=== PATIENT | female | born 1950 | race Caucasian/White ===

== ENCOUNTER 2017-02-25 11:00 | Inpatient (IN) | payer BC ==
[2017-02-25] MEDS ORDERED: Magnesium Sulfate 2 GM/100 ML BAG ONE (11:39)
[2017-02-25] MEDS ORDERED: Acetaminophen 325 MG TAB PO PRN (11:40)
[2017-02-25] MEDS ORDERED: Senokot 8.6 MG TAB PO PRN (11:40)
[2017-02-25] MEDS ORDERED: Guaifenesin DM 100-10/5 ML UDCUP PO PRN (11:40)
[2017-02-25 11:41] LABS: Actual Bicarbonate (HCO3a) 28.6 mEq/L (22-26); Base Excess (BEa) 0.8 mEq/L (0 (+/-) 2.5); Hematocrit-ABG 46.8 % (36.0-47.0); O2 Tension (PaO2) 98.4 mmHg (80.0-100.0); pH, Arterial 7.29 (7.35-7.45)
[2017-02-25 11:43] LABS: Analyzer IN Cardio ER; Puncture Site L.B.
[2017-02-25 11:59] LABS: CKMB 13.2 ng/mL (0-6.6); Troponin I 0.486 ng/mL (< 0.028)
[2017-02-25] MEDS ORDERED: Enoxaparin Sodium 60 MG/0.6 ML SYRINGE ONE (12:35)
[2017-02-25] MEDS: Enoxaparin Sodium 80 MG/0.8 ML SYRINGE SC SCH ×2 (13:31→23:37)
[2017-02-25] MEDS: Sodium Chloride 0.9% 1,000 ML IV SCH (13:37)
[2017-02-25] MEDS: Azithromycin 500 MG in Sodium Chloride 0.9% 250 ML 250 ML IVPB SCH (13:39)
[2017-02-25 14:48] VITALS: BMI 24.7
--- NOTE | 2017-02-25 14:53 | HP ---
REASON FOR ADMISSION: Acute respiratory failure with hypoxia and hypercarbia, acute COPD exacerbation, demand ischemia of myocardium. HISTORY OF PRESENTING ILLNESS: The patient gives history of having worsening shortness of breath and coughing spells from yesterday. This got worse early this morning. She finally went to [facility] where she was found to have saturations of 80% on arrival. She was placed on nasal cannula. She has had a preliminary workup done there, which showed a troponin I of 0.5, CK-MB of 12 and sodium of 126. On arrival here, patient has had a CT angio chest done, which showed right upper and right middle lobe pneumonia. There was no PE on the CT angio. Currently, she is barely able to speak one or two words before she has to take a breath and is in respiratory distress at present. The patient says she smokes 2-3 cigarettes a day and has been smoking heavy before. She has done that for nearly 50 years or so now. Patient also sees Dr. Cano for Pulmonology in the outpatient setting. No chest pain as such. She has no complaints of palpitation. She has felt feverish at home. PAST MEDICAL AND SURGICAL HISTORY: COPD, tobacco abuse, peripheral vascular disease with fem-pop repair as well, tonsillectomy, , trigger thumb repair, back surgery, hypertension and dyslipidemia. CURRENT MEDICATIONS: Patient takes losartan, Zocor, and inhaler. She cannot remember further specifics of these three medications. ALLERGIES: LEVOFLOXACIN. PERSONAL HISTORY: Smokes 2-3 cigarettes now daily prior to, but has been a heavy smoker before and has done so for nearly 50 years, does not abuse, heavy alcohol or drugs. Lives with her . CODE STATUS: FULL. FAMILY HISTORY: Mom at the age of 63 years from pancreatic cancer. Father at the age of 87 years. She has had history of CHF. REVIEW OF SYSTEMS: The following complete review of systems was negative, unless otherwise mentioned in the HPI or below: CONSTITUTIONAL: Weight loss or gain, ability to conduct usual activities. SKIN: Rash, itching. EYES: Double vision, pain. ENT/MOUTH: Nose bleeding, neck stiffness, pain, tenderness. CARDIOVASCULAR: Palpitations, dyspnea on exertion, orthopnea. RESPIRATORY: Shortness of breath, wheezing, cough, hemoptysis, fever or night sweats. GASTROINTESTINAL: Poor appetite, abdominal pain, heartburn, nausea, vomiting, constipation, or diarrhea. GENITOURINARY: Urgency, frequency, dysuria, nocturia. MUSCULOSKELETAL: Pain, swelling. NEUROLOGIC/PSYCHIATRIC: Anxiety, depression. ALLERGY/IMMUNOLOGIC: Skin rash, bleeding tendency. PHYSICAL EXAMINATION: GENERAL: The patient is a 66-year-old female, who is currently in respiratory distress. VITAL SIGNS: Blood pressure 136/74, pulse 112 per minute, respiratory rate 24 per minute, temperature 98.8 degrees Fahrenheit, saturating 93% on 3 liters nasal cannula. NECK: Supple, no elevated JVD. HEENT: Eyes, extraocular muscles intact. Pupils reacting to light. Oral cavity and mucous membranes are dry. There is mild congestion in the posterior pharynx. CARDIOVASCULAR: S1, S2 heard. Tachycardic, no murmur. RESPIRATORY: Air entry 1+ bilateral. Wheezes plus bilaterally. ABDOMEN: Soft, bowel sounds heard. No tenderness, rigidity or guarding. EXTREMITIES: No peripheral edema or calf tenderness. VASCULAR SYSTEM: Peripheral pulses 1+ bilateral. No ischemic ulcerations or gangrene. CENTRAL NERVOUS SYSTEM: No gross focal deficits seen. Patient is alert, awake , oriented well. PSYCHIATRIC: The patient's mood is a bit anxious, otherwise no hallucinations or delusions. LABORATORY AND X-RAY FINDINGS: White count 10, H&H 14 and 41, platelet count is 286 with 81% neutrophils. ABG done just now shows a pH of 7.29, PCO2 61, pO2 of 98, sodium 126, potassium 3.8, serum bicarbonate 28, BUN 9, creatinine 0.6, glucose 121, AST 62, ALT 30. BNP is 198, troponin I 0.52. CK-MB 12.3. CT angio chest done shows no evidence of PE. There is a right upper lobe and right middle lobe pneumonia. EKG done shows sinus tachycardia at 109 beats per minute. Repeat EKG is pending at present. CLINICAL IMPRESSION AND PLAN: The patient will be admitted to [facility] for acute respiratory failure with hypoxia and hypercarbia, acute on chronic obstructive pulmonary disease exacerbation and likely demand ischemia. We will place her on BiPAP and see if she tolerates. She will be on Zithromax and ceftriaxone along with gentle hydration. She will be on Solu-Medrol 40 mg IV q.6 hourly along with nebulizers every 6 hours. She will be on aspirin and small dose of Coreg. We will continue her Zocor as before. She will be on nitro paste half- inch every 8 hourly and Lovenox 60 mg subQ every 12 hourly. Her Lovenox can be discontinued if the troponins are trending downwards. We will see the trend with 2 more sets of troponin. We will consult her pulverizer operator, Dr. Cano, who is telephone sales agent today and Dr. Farmer for Cardiology as well. Patient has peripheral vascular disease and likely might have CAD and it is unclear if she has had a prior stress test. MAIRA
[2017-02-25] MEDS ORDERED: cefTRIAXone\\ROCEPHIN 1 GM in Sodium Chloride 0.9% 100 ML IVPB SCH (15:00)
[2017-02-25] MEDS: Nitroglycerin 2% Ointment 1 INCH/1 GM Packet TOP SCH ×2 (15:21→21:32)
[2017-02-25 15:24] LABS: Critical Call Chem Troponin I RESULT DECREASING
[2017-02-25 18:04] LABS: Critical Call Chem Troponin I RESULT DECREASING; Troponin I 0.316 ng/mL (< 0.028)
[2017-02-25] MEDS: cefTRIAXone\\ROCEPHIN 1 GM, Syringe 0.4 ML in Sterile Water 9.6 ML SLOW IVP SCH (18:04)
--- NOTE | 2017-02-25 19:10 | CON ---
DATE OF CONSULTATION: 02/25/2017 REASON FOR CONSULTATION: Acute respiratory failure. HISTORY OF PRESENT ILLNESS: This is a 66-year-old female who became ill about 5 days ago, multiple f amily members had the flu. The patient has developed shortness of breath. Symptoms are generalized and characterized by tightness with high severity. Symptoms have been getting worse. She has had pr oductive green and yellow sputum. She is continuing to smoke about 2 packs per day. PAST MEDICAL HISTORY: 1. Chronic obstructive pulmonary disease. 2. Peripheral vascular disease. 3. Tobacco abuse. PAST SURGICAL HISTORY: Laminectomy and lower extremity angiography. PSYCHIATRIC HISTORY: Negative. SOCIAL HISTORY: A 2-pack per day smoker, occasionally drinks alcohol. Does not use illicit drugs. ALLERGIES: LEVOFLOXACIN causes heart racing. MEDICATIONS PRIOR TO ADMISSION: Simvastatin 40 mg daily, metoprolol 25 mg b.i.d., losartan/hydrochlo rothiazide 27450.5 one daily, Flonase nasal spray daily, cilostazol 100 mg b.i.d., Ceftin 500 mg b.i. d., albuterol, ProAir metered dose inhaler as needed, aspirin 81 mg daily. Current inpatient medicat ions were reviewed and are listed in the MAR and chart includes antibiotics, methylprednisolone and b reathing treatments. REVIEW OF SYSTEMS: A 12- point review of systems otherwise negative. FAMILY MEDICAL HISTORY: Unremarkable. PHYSICAL EXAMINATION: VITAL SIGNS: Temperature 99.0, pulse 103, respirations 20, O2 saturation 97% on 2 liters, blood pres sure 102/72. GENERAL: She is an elderly female who appears much older than her stated age of 66. HEENT: Unremarkable. NECK: Without adenopathy, JVD, or bruits. LUNGS: Tight end expiratory wheezing bilaterally with no accessory muscle use. CARDIAC: S1, S2, slightly tachycardic without murmur. ABDOMEN: Soft, nontender, nondistended. EXTREMITIES: No clubbing, cyanosis or edema. SKIN: Shows no obvious lesions. NEUROLOGIC: Fully intact throughout. LABORATORY DATA: ABG, pH 7.29, pCO2 of 61, pO2 of 98 and that was on 3 L nasal cannula. White blood cell count 10.4, hematocrit 41.6, platelet count 286. Sodium 126, potassium 3.8, chloride 85, CO2 o f 28, BUN 17, creatinine 0.6, glucose 121, cholesterol 220. ASSESSMENT: 1. Acute respiratory failure related to chronic obstructive pulmonary disease exacerbation. 2. Underlying chronic obstructive pulmonary disease. 3. Tobacco abuse. 4. Hyponatremia. 5. Normal chest x-ray, which I have reviewed personally. 6. CT pulmonary angiogram that I reviewed personally, which shows no evidence of pulmonary embolism, but this shows infiltrate in the right middle lobe and right lower lobe. 7. Pneumonia. RECOMMENDATIONS: 1. Continue antibiotics. 2. Increase frequency nebulization treatments. 3. Would reduce anticoagulation down to prophylactic doses unless there is another reason for antico agulation that I am not aware of.
[2017-02-25] MEDS: Simvastatin 40 MG TAB PO SCH (21:32)
[2017-02-25] MEDS: Carvedilol 3.125 MG TAB PO SCH (21:32)
[2017-02-25] MEDS: Famotidine 20 MG TAB PO SCH (21:32)
[2017-02-26] MEDS: Sodium Chloride 0.9% 1,000 ML IV SCH ×3 (05:08→20:58)
[2017-02-26] MEDS: Nitroglycerin 2% Ointment 1 INCH/1 GM Packet TOP SCH ×3 (05:08→20:55)
[2017-02-26 05:29] LABS: #Lymphocytes 0.6 thou/uL (1.20-3.40); #Monocytes 0.4 thou/uL (0.11-0.59); %Basophils 0.3 % (0.0-1.0); %Eosinophils 0.1 % (0.0-10.0); %Lymphocytes 10.1 % (21.0-51.0); %Monocytes 6.9 % (0.0-10.0); %Neutrophils 82.5 % (42.0-75.0); Hemoglobin 12.3 g/dL (12.0-16.0); Mean Corpuscular HGB CONC 31.7 g/dL (32.0-36.0); Mean Corpuscular Hemoglobin 31.4 pg (27.0-31.0); Mean Corpuscular Volume 99.1 fl (81.0-99.0); Platelet Count 254 thou/uL (130-400); RBC Distribution Width 13.6 % (11.5-14.5); Red Blood Cell (RBC) Count 3.92 mill/uL (4.20-5.40); White Blood Cell (WBC) Count 6.1 thou/uL (4.8-10.8)
[2017-02-26 06:03] LABS: Anion Gap 14 mmol/L (10-20); BUN (Urea Nitrogen) 7 mg/dL (9.8-20.1); Calc. Creatinine Clearance 91 mL/min (70-130); Calcium 8.3 mg/dL (7.8-10.44); Carbon Dioxide 29 mmol/L (23-31); Cardiac Risk 2.5 (Less than 4.5); Chloride 93 mmol/L (98-107); Cholesterol 127 mg/dl (< 200 Desired); Estimated GFR-MDRD Greater than 90; Glucose 127 mg/dL (80-115); HDL Cholesterol 50 mg/dL (>60 Neg Risk); LDL Cholesterol, Calculated 64 mg/dL; Potassium 3.8 mmol/L (3.5-5.1); Sodium 132 mmol/L (136-145); Triglycerides 67 mg/dL (Less than 150)
[2017-02-26] MEDS: Aspirin 325 MG TAB PO SCH (08:08)
[2017-02-26] MEDS: Famotidine 20 MG TAB PO SCH ×2 (08:08→20:55)
[2017-02-26] MEDS: Carvedilol 3.125 MG TAB PO SCH ×2 (08:09→20:55)
--- NOTE | 2017-02-26 09:31 | PDOC.PULPN ---
Progress Note: Subj/Obj - Subjective Date: 02/26/17 Time: 09:29 Subjective: Not much better. Refusing BiPAP. Wants to get up and go to bathroom - ROS Respiratory: congestion, cough, chest tightness - Objective Allergies/Adverse Reactions: Allergies Allergy/AdvReac Type Severity Reaction Status Date / Time levofloxacin [From Levaquin] Allergy Severe HEART Verified 02/25/17 14:50 RACING/SOB Medications: Current Medications Acetaminophen (Tylenol) 650 mg PO Q4H PRN PRN Reason: Headache/Fever or Pain Albuterol/Ipratropium (Duoneb) 3 ml NEB [id number] [facility] Last Admin: 02/26/17 06:39 Dose: 3 ml Aspirin (Aspirin) 325 mg PO DAILY [facility] Last Admin: 02/26/17 08:08 Dose: 325 mg Carvedilol (Coreg) 3.125 mg PO BID [facility] Last Admin: 02/26/17 08:09 Dose: 3.125 mg Enoxaparin Sodium (Lovenox) 40 mg SC 0900 [facility] Famotidine (Pepcid) 20 mg PO BID [facility] Last Admin: 02/26/17 08:08 Dose: 20 mg Guaifenesin/Dextromethorphan (Robitussin Dm) 15 ml PO Q4H PRN PRN Reason: Cough Azithromycin 500 mg/ Sodium (Chloride) 250 mls @ 250 mls/hr IVPB 1300 [facility] Last Admin: 02/25/17 13:39 Dose: 250 mls Sodium Chloride (Normal Saline 0.9%) 1,000 mls @ 70 mls/hr IV .[id number] [facility] Last Admin: 02/26/17 05:08 Dose: 1,000 mls Ceftriaxone Sodium 1 gm/ (Syringe 0.4 ml/ Sterile Water) 10 mls @ 120 mls/hr SLOW IVP 1830 [facility] Last Admin: 02/25/17 18:04 Dose: 10 mls Methylprednisolone Sodium Succinate (Solu-Medrol) 40 mg IVP Q6HR [facility] Last Admin: 02/26/17 05:08 Dose: 40 mg Nitroglycerin (Nitro-Bid 2% Ointment) 0.5 inch TOP Q8HR [facility] Last Admin: 02/26/17 05:08 Dose: 0.5 inch Senna (Senokot) 2 tab PO HSPRN PRN PRN Reason: Constipation Simvastatin (Zocor) 40 mg PO HS [facility] Last Admin: 02/25/17 21:32 Dose: 40 mg MAR Reviewed: Yes Vital Signs: Vital Signs Temp 97.6 F 02/26/17 07:00 Pulse 93 02/26/17 07:00 Resp 20 02/26/17 07:00 BP 156/93 H 02/26/17 07:00 Pulse Ox 93 L 02/26/17 07:00 Intake & Output 02/25/17 02/26/17 02/26/17 18:59 06:59 18:59 Intake Total 1350 1090 Output Total 800 700 Balance 550 390 Weight 135 lb 4.8 oz 135 lb 11.2 oz Intake: Intake, IV Amount 600 840 Oral 750 250 Output: Urine 800 700 Other: Voiding Method Bedpan Bedpan # Urine Diapers 3 Progress Note: Exam - Physical Exam Deviation from normal: mild resp distress HEENT: PERRLA, moist MMs, sclera anicteric Neck: no nodes, no JVD Deviation from normal: mildly tachycardic w regular rhythm Respiratory: prolonged expiratory phase Focused Respiratory Location: wheezes: Right, Left Gastrointestinal: soft, non-tender, no distention, positive bowel sounds Musculoskeletal: no edema Neurological: non-focal, normal sensation, moves all 4 limbs Lymphatic: no nodes Psychiatric: normal affect, A&O x 3 Skin: no rash, normal turgor - Labs Result Diagrams: 02/26/17 04:55 02/26/17 04:55 Lab results: Laboratory Results - last 24 hr 02/25/17 02/25/17 02/25/17 11:35 14:42 17:29 WBC RBC Hgb Hct MCV MCH MCHC RDW Plt Count MPV Neutrophils % Lymphocytes % Monocytes % Eosinophils % Basophils % Neutrophils # Lymphocytes # Monocytes # Eosinophils # Basophils # Specimen Type ARTERIAL Puncture Site L.B. Bicarbonate Actual 28.6 H ABG pH 7.29 L ABG pCO2 61.0 H* ABG pO2 98.4 ABG O2 Sat Calc/Barb 97.1 ABG O2 Content 17.4 L ABG Base Excess 0.8 ABG Hematocrit 46.8 ABG Hemoglobin 13.0 ABG Oxyhemoglobin 94.4 ABG Carboxyhemoglobin 2.0 ABG Methemoglobin 0.7 ABG Deoxyhemoglobin 2.8 Danilo Test NOT DONE A-a O2 Gradient 56.070 H Sodium 127 L Potassium 3.2 L Chloride 88 L Ionized Calcium 1.0 L Mode of Support 3L NC Inspired O2 32 Carbon Dioxide Anion Gap BUN Creatinine Estimated GFR (MDRD) Glucose Calcium Troponin I 0.380 H* 0.316 H* Triglycerides Cholesterol LDL Cholesterol, Calc HDL Cholesterol Heart Disease Risk Ratio 02/26/17 02/26/17 04:55 04:55 WBC 6.1 RBC 3.92 L Hgb 12.3 Hct 38.9 MCV 99.1 H MCH 31.4 H MCHC 31.7 L RDW 13.6 Plt Count 254 MPV 7.0 L Neutrophils % 82.5 H Lymphocytes % 10.1 L Monocytes % 6.9 Eosinophils % 0.1 Basophils % 0.3 Neutrophils # 5.0 Lymphocytes # 0.6 L Monocytes # 0.4 Eosinophils # 0.0 Basophils # 0.0 Specimen Type Puncture Site Bicarbonate Actual ABG pH ABG pCO2 ABG pO2 ABG O2 Sat Calc/Barb ABG O2 Content ABG Base Excess ABG Hematocrit ABG Hemoglobin ABG Oxyhemoglobin ABG Carboxyhemoglobin ABG Methemoglobin ABG Deoxyhemoglobin Danilo Test A-a O2 Gradient Sodium 132 L Potassium 3.8 Chloride 93 L Ionized Calcium Mode of Support Inspired O2 Carbon Dioxide 29 Anion Gap 14 BUN 7 L Creatinine 0.61 Estimated GFR (MDRD) Greater than 90 Glucose 127 H Calcium 8.3 Troponin I Triglycerides 67 Cholesterol 127 LDL Cholesterol, Calc 64 HDL Cholesterol 50 Heart Disease Risk Ratio 2.5 Progress Note: A/P - Problems (1) Acute respiratory failure with hypoxia and hypercapnia Current Visit: Yes Status: Acute Code(s): J96.01 - ACUTE RESPIRATORY FAILURE WITH HYPOXIA; J96.02 - ACUTE RESPIRATORY FAILURE WITH HYPERCAPNIA (2) COPD with exacerbation Current Visit: Yes Status: Acute Code(s): J44.1 - CHRONIC OBSTRUCTIVE PULMONARY DISEASE W (ACUTE) EXACERBATION (3) Tobacco abuse Current Visit: Yes Status: Acute Code(s): Z72.0 - TOBACCO USE - Time Spent with Patient Time: 50% of the time was spent in coordination of care (as documented) at patient's floor/unit and/or counseling patient. - Plan Plan: Continue BiPAP prn Leave in IMCU Continue steroids, Nebs, ABX Likely to need several more days in hospital
[2017-02-26] MEDS: Enoxaparin Sodium 40 MG/0.4 ML SYRINGE SC SCH (09:59)
--- NOTE | 2017-02-26 11:37 | PDOC.PN ---
- Subjective Encounter Start Date: 02/26/17 Encounter Start Time: 10:50 Subjective: is wheezing, wants to walk -: spo2 falls to 80's per staff when she is oob - Objective Resuscitation Status: Resuscitation Status FULL:Full Resuscitation MAR Reviewed: Yes Vital Signs & Weight: Vital Signs (12 hours) Temp Pulse Resp BP Pulse Ox 02/26/17 08:00 97.6 F 93 20 93 L 02/26/17 07:00 97.6 F 93 20 156/93 H 93 L 02/26/17 06:42 96 02/26/17 06:39 99 16 02/26/17 04:00 98.3 F 99 20 134/75 93 L 02/26/17 02:20 101 H 22 H 88 L 02/26/17 00:00 98.1 F 86 18 92/59 L 100 Weight Weight 135 lb 11.2 oz I&O: 02/25/17 02/26/17 02/27/17 06:59 06:59 06:59 Intake Total 2440 Output Total 1500 Balance 940 Result Diagrams: 02/26/17 04:55 02/26/17 04:55 Phys Exam - Physical Examination HEENT: PERRLA, sclera anicteric Neck: no JVD, supple Respiratory: no rales, wheezing present Cardiovascular: RRR, no significant murmur Gastrointestinal: soft, non-tender, positive bowel sounds Musculoskeletal: no edema, pulses present Neurological: non-focal, moves all 4 limbs Psychiatric: A&O x 3 Dx/Plan (1) COPD with exacerbation Code(s): J44.1 - CHRONIC OBSTRUCTIVE PULMONARY DISEASE W (ACUTE) EXACERBATION Status: Acute (2) Acute respiratory failure with hypoxia and hypercapnia Code(s): J96.01 - ACUTE RESPIRATORY FAILURE WITH HYPOXIA; J96.02 - ACUTE RESPIRATORY FAILURE WITH HYPERCAPNIA Status: Acute (3) Demand ischemia of myocardium Code(s): I24.8 - OTHER FORMS OF ACUTE ISCHEMIC HEART DISEASE Status: Acute (4) Tobacco abuse Code(s): Z72.0 - TOBACCO USE Status: Chronic (5) Dyslipidemia Code(s): E78.5 - HYPERLIPIDEMIA, UNSPECIFIED Status: Chronic - Plan has refused to wear bipap last night and early am -: is on azithro and ceftriaxone -: nebs, steroids iv -: gentle iv hydration -: no chest pain, demand ischemia due to lung issues * . Review of Systems - Medications/Allergies Allergies/Adverse Reactions: Allergies Allergy/AdvReac Type Severity Reaction Status Date / Time levofloxacin [From Levaquin] Allergy Severe HEART Verified 02/25/17 14:50 RACING/SOB Medications: Current Medications Acetaminophen (Tylenol) 650 mg PO Q4H PRN PRN Reason: Headache/Fever or Pain Albuterol/Ipratropium (Duoneb) 3 ml NEB [id number] [facility] Last Admin: 02/26/17 06:39 Dose: 3 ml Alprazolam (Xanax) 0.25 mg PO TIDPRN PRN PRN Reason: Anxiety Aspirin (Aspirin) 325 mg PO DAILY [facility] Last Admin: 02/26/17 08:08 Dose: 325 mg Carvedilol (Coreg) 3.125 mg PO BID [facility] Last Admin: 02/26/17 08:09 Dose: 3.125 mg Enoxaparin Sodium (Lovenox) 40 mg SC 0900 [facility] Last Admin: 02/26/17 09:59 Dose: Not Given Famotidine (Pepcid) 20 mg PO BID [facility] Last Admin: 02/26/17 08:08 Dose: 20 mg Guaifenesin/Dextromethorphan (Robitussin Dm) 15 ml PO Q4H PRN PRN Reason: Cough Azithromycin 500 mg/ Sodium (Chloride) 250 mls @ 250 mls/hr IVPB 1300 [facility] Last Admin: 02/25/17 13:39 Dose: 250 mls Sodium Chloride (Normal Saline 0.9%) 1,000 mls @ 70 mls/hr IV .[id number] [facility] Last Admin: 02/26/17 05:08 Dose: 1,000 mls Ceftriaxone Sodium 1 gm/ (Syringe 0.4 ml/ Sterile Water) 10 mls @ 120 mls/hr SLOW IVP 1830 [facility] Last Admin: 02/25/17 18:04 Dose: 10 mls Methylprednisolone Sodium Succinate (Solu-Medrol) 40 mg IVP Q6HR [facility] Last Admin: 02/26/17 05:08 Dose: 40 mg Nitroglycerin (Nitro-Bid 2% Ointment) 0.5 inch TOP Q8HR [facility] Last Admin: 02/26/17 05:08 Dose: 0.5 inch Senna (Senokot) 2 tab PO HSPRN PRN PRN Reason: Constipation Simvastatin (Zocor) 40 mg PO [facility] Last Admin: 02/25/17 21:32 Dose: 40 mg
[2017-02-26] MEDS: Azithromycin 500 MG in Sodium Chloride 0.9% 250 ML 250 ML IVPB SCH (11:42)
[2017-02-26] MEDS: ALPRAZolam 0.25 MG TAB PO PRN ×2 (11:47→20:55)
[2017-02-26] MEDS ORDERED: cefTRIAXone\\ROCEPHIN 1 GM, Syringe 0.4 ML in Sterile Water 9.6 ML SLOW IVP SCH (16:00)
[2017-02-26] MEDS: cefTRIAXone\\ROCEPHIN 1 GM, Syringe 0.4 ML in Sterile Water 9.6 ML SLOW IVP SCH (16:44)
[2017-02-26] MEDS: Simvastatin 40 MG TAB PO SCH (20:55)
--- NOTE | 2017-02-27 03:22 | CON ---
DATE OF CONSULTATION: 02/26/2017 HISTORY OF PRESENT ILLNESS: Kristin Vance is a 66-year-old white female, long- term smoker, is admitted with increased cough and shortness of breath. On morning, she went to the emergency room in [place] and was found to have O2 saturations of an 80% on arrival. She had elevated troponin I and is transferred here. On arrival here, she had a CT angiogram of the chest, which showed right upper and right middle lobe pneumonia, but no evidence of pulmonary embolism. She denies any chest discomfort or cardiac problems in the past. PAST MEDICAL HISTORY: COPD, peripheral vascular disease, hypertension, hyperlipidemia. OPERATIONS: Tonsillectomy, , trigger thumb repair, back surgery. In 02/2013, she underwent right external iliac stenting. The patient states she also has had a stent placed in her other leg. She underwent right fem-pop bypass and underwent repair of this in 01/2015. MEDICATIONS: At home include albuterol, aspirin 81 q.d., Ceftin 500 b.i.d., cilostazol 1000 b.i.d., Flonase nasal spray, losartan/hydrochlorothiazide 100/ 12.5 q.d., metoprolol 25 b.i.d. and simvastatin 40 at bedtime. ALLERGIES: LEVOFLOXACIN. SOCIAL HISTORY: She smoked up to 1 pack per day, but now only smokes 2-3 cigarettes per day. She does not drink. She lives with her . FAMILY HISTORY: Negative for coronary artery disease. REVIEW OF SYSTEMS: Twelve point review of systems otherwise unremarkable. PHYSICAL EXAMINATION: VITAL SIGNS: Blood pressure 132/87, pulse of 99. HEENT: PERRL. NECK: Supple. Chest reveals very distant breath sounds. CARDIOVASCULAR: S1 and S2 are normal, without any S3, S4 or murmurs. Carotid upstrokes normal without bruits. ABDOMEN: Normal bowel sounds without tenderness or organomegaly. EXTREMITIES: Revealed no clubbing, cyanosis or edema. NEUROLOGIC: Grossly intact. LABORATORY DATA: EKG reveals normal sinus rhythm with nonspecific ST segment changes. Echocardiogram was technically difficult. Ejection fraction of 65% to 70%, evidence for diastolic dysfunction, mild mitral regurgitation, mild tricuspid regurgitation. Hemoglobin 12.3, hematocrit 38.9, white count 6100, platelets 254,000. D-dimer 0.59, pH 7.29, pCO2 of 61.0, pO2 of 98.4. Sodium 132, potassium 3.8, chloride 93, carbon dioxide 29, BUN 7, creatinine 0.41. Cholesterol 127, triglycerides 67, HDL 50, LDL 64, CK-MB 13.2, troponin I 0.486 , BNP 198.9, creatine kinase 904. IMPRESSION: 1. Multi lobe pneumonia with acute hypoxic respiratory failure. 2. Elevated cardiac enzymes. Her CK-MB percent is less than 1.5%. Her elevated troponin I certainly may be due to demand ischemia with her severe hypoxemia. 3. Peripheral vascular disease. 4. The patient continues to smoke. 5. Hypertension. 6. Hypercholesterolemia. PLAN: The patient will continue to be followed. Consideration could be given to further evaluation of her elevated cardiac enzymes with her pneumonia has improved. MTDD
[2017-02-27] MEDS: ALPRAZolam 0.25 MG TAB PO PRN ×3 (03:53→23:07)
[2017-02-27] MEDS: Nitroglycerin 2% Ointment 1 INCH/1 GM Packet TOP SCH ×3 (06:17→20:26)
[2017-02-27 09:03] LABS: #Lymphocytes 0.4 thou/uL (1.20-3.40); #Monocytes 0.4 thou/uL (0.11-0.59); #Neutrophils 6.7 thou/uL (1.40-6.50); %Basophils 0.3 % (0.0-1.0); %Eosinophils 0.1 % (0.0-10.0); %Lymphocytes 5.8 % (21.0-51.0); %Monocytes 5.7 % (0.0-10.0); %Neutrophils 88.1 % (42.0-75.0); Hemoglobin 12.5 g/dL (12.0-16.0); Mean Corpuscular HGB CONC 31.5 g/dL (32.0-36.0); Mean Corpuscular Hemoglobin 31.6 pg (27.0-31.0); Mean Platelet Volume 6.7 fL (7.4-10.4); Platelet Count 275 thou/uL (130-400); RBC Distribution Width 13.7 % (11.5-14.5); Red Blood Cell (RBC) Count 3.95 mill/uL (4.20-5.40); White Blood Cell (WBC) Count 7.6 thou/uL (4.8-10.8)
[2017-02-27] MEDS: Famotidine 20 MG TAB PO SCH ×2 (09:21→20:26)
[2017-02-27] MEDS: Carvedilol 3.125 MG TAB PO SCH ×2 (09:21→18:54)
[2017-02-27] MEDS: Enoxaparin Sodium 40 MG/0.4 ML SYRINGE SC SCH (09:21)
[2017-02-27] MEDS: Aspirin 325 MG TAB PO SCH (09:21)
[2017-02-27 09:25] LABS: Anion Gap 13 mmol/L (10-20); BUN (Urea Nitrogen) 8 mg/dL (9.8-20.1); Calc. Creatinine Clearance 97 mL/min (70-130); Calcium 8.7 mg/dL (7.8-10.44); Carbon Dioxide 33 mmol/L (23-31); Chloride 93 mmol/L (98-107); Estimated GFR-MDRD Greater than 90; Glucose 133 mg/dL (80-115); Potassium 4.2 mmol/L (3.5-5.1); Sodium 135 mmol/L (136-145)
--- NOTE | 2017-02-27 11:08 | PQF ---
CLINICAL DOCUMENTATION IMPROVEMENT CLARIFICATION FORM: ICD-10 Updated PLEASE DO AN ADDENDUM TO THE PROGRESS NOTE WITH ANY DOCUMENTATION UPDATES OR ADDITIONS AND CARRY THROUGH TO DC SUMMARY. THANK YOU. QUERY RESUBMITTED D/T SOUND PHYSICIAN LIST FOR 02/27 INCORRECT DATE: 02/27, 02/28 ATTN: DR. Deana BERNAL/ DR. Bita NAVARRO Please exercise your independent, professional judgment in responding to the clarification form. Clinical indicators are provided on the bottom of this form for your review Please check appropriate box(s): [ ] Pneumonia secondary to (specify organism / underlying disease) [x ] Simple Pneumonia (community acquired - nosocomial) [ ] Bronchopneumonia [ ] Pneumonia of unknown etiology [ ] Other diagnosis [ ] Unable to determine For continuity of documentation, please document condition throughout progress notes and discharge summary. Thank You. CLINICAL INDICATORS - SIGNS / SYMPTOMS / LABS ER PHYSICIAN DOCUMENTATION 02/25: CTA SHOWED MULTIFOCAL R UPPER & R MIDDLE LOBE PNEUMONIA ER PHYSICIAN DIAGNOSIS DOCUMENTATION 02/25: PNEUMONIA ATTENDING PHYSICIAN H&P DOCUMENTATION 02/25: HX PRESENT ILLNESS: CTA SHOWED R UPPER & MIDDLE LOBE PNEUMONIA PULMONOLOGY CONSULT DOCUMENTATION 02/25: ASSESSMENT: 7. PNEUMONIA RISK FACTORS: COPD EXACERBATION TOBACCO ABUSE INFILTRATE PER CTA TREATMENTS: IV ANTIBIOTICS (ROCEPHIN & AZITHROMAX 02/25 - PRESENT) SUPPLEMENTAL OXYGEN VIA NC & BIPAP PRN RESPIRATORY TREATMENTS PULMONOLOGY CONSULT THANK YOU! Joyce (This form is maintained as a part of the permanent medical record) 2014 [employer]. All Rights Reserved Joyce Oliver RN, BSN [email or web address] Office: [phone] [facility]
--- NOTE | 2017-02-27 11:33 | PDOC.PN ---
- Subjective Encounter Start Date: 02/27/17 Encounter Start Time: 07:15 Subjective: is on bipap from am, had refused to wear it last night - Objective Resuscitation Status: Resuscitation Status FULL:Full Resuscitation MAR Reviewed: Yes Vital Signs & Weight: Vital Signs (12 hours) Temp Pulse Resp BP Pulse Ox 02/27/17 08:00 98.4 F 98 20 92 L 02/27/17 07:42 98.4 F 98 20 155/86 H 91 L 02/27/17 02:58 84 16 99 02/27/17 00:01 75 22 H 153/86 H 95 Weight Weight 135 lb 11.2 oz I&O: 02/26/17 02/27/17 02/28/17 06:59 06:59 06:59 Intake Total 2440 2797 Output Total 1500 950 Balance 940 1847 Result Diagrams: 02/27/17 08:50 02/27/17 08:50 Phys Exam - Physical Examination HEENT: PERRLA, sclera anicteric Neck: no JVD, supple Respiratory: no rales, wheezing present Cardiovascular: RRR, no significant murmur Gastrointestinal: soft, non-tender, positive bowel sounds Musculoskeletal: no edema, pulses present Neurological: non-focal, moves all 4 limbs Psychiatric: A&O x 3 Dx/Plan (1) COPD with exacerbation Code(s): J44.1 - CHRONIC OBSTRUCTIVE PULMONARY DISEASE W (ACUTE) EXACERBATION Status: Acute (2) Acute respiratory failure with hypoxia and hypercapnia Code(s): J96.01 - ACUTE RESPIRATORY FAILURE WITH HYPOXIA; J96.02 - ACUTE RESPIRATORY FAILURE WITH HYPERCAPNIA Status: Acute (3) Demand ischemia of myocardium Code(s): I24.8 - OTHER FORMS OF ACUTE ISCHEMIC HEART DISEASE Status: Acute (4) Tobacco abuse Code(s): Z72.0 - TOBACCO USE Status: Chronic (5) Dyslipidemia Code(s): E78.5 - HYPERLIPIDEMIA, UNSPECIFIED Status: Chronic - Plan is on ceftriaxone and zithromax -: nebs, steroids -: bipap -: echo shows ef of 60% with diast dysfunction -: d/w and pt at bedside * . Review of Systems - Medications/Allergies Allergies/Adverse Reactions: Allergies Allergy/AdvReac Type Severity Reaction Status Date / Time levofloxacin [From Levaquin] Allergy Severe HEART Verified 02/25/17 14:50 RACING/SOB Medications: Current Medications Acetaminophen (Tylenol) 650 mg PO Q4H PRN PRN Reason: Headache/Fever or Pain Albuterol/Ipratropium (Duoneb) 3 ml NEB [id number] [facility] Last Admin: 02/27/17 09:58 Dose: Not Given Alprazolam (Xanax) 0.25 mg PO TIDPRN PRN PRN Reason: Anxiety Last Admin: 02/27/17 03:53 Dose: 0.25 mg Aspirin (Aspirin) 325 mg PO DAILY [facility] Last Admin: 02/27/17 09:21 Dose: 325 mg Carvedilol (Coreg) 3.125 mg PO BID [facility] Last Admin: 02/27/17 09:21 Dose: 3.125 mg Enoxaparin Sodium (Lovenox) 40 mg SC 0900 [facility] Last Admin: 02/27/17 09:21 Dose: 40 mg Famotidine (Pepcid) 20 mg PO BID [facility] Last Admin: 02/27/17 09:21 Dose: 20 mg Guaifenesin/Dextromethorphan (Robitussin Dm) 15 ml PO Q4H PRN PRN Reason: Cough Azithromycin 500 mg/ Sodium (Chloride) 250 mls @ 250 mls/hr IVPB 1300 [facility] Last Admin: 02/26/17 11:42 Dose: 250 mls Sodium Chloride (Normal Saline 0.9%) 1,000 mls @ 70 mls/hr IV .[id number] [facility] Last Admin: 02/26/17 20:58 Dose: 1,000 mls Ceftriaxone Sodium 1 gm/ (Syringe 0.4 ml/ Sterile Water) 10 mls @ 120 mls/hr SLOW IVP 1830 [facility] Last Admin: 02/26/17 16:44 Dose: 10 mls Methylprednisolone Sodium Succinate (Solu-Medrol) 40 mg IVP Q6HR [facility] Last Admin: 02/27/17 06:17 Dose: 40 mg Nitroglycerin (Nitro-Bid 2% Ointment) 0.5 inch TOP Q8HR [facility] Last Admin: 02/27/17 06:17 Dose: 0.5 inch Senna (Senokot) 2 tab PO HSPRN PRN PRN Reason: Constipation Simvastatin (Zocor) 40 mg PO HS [facility] Last Admin: 02/26/17 20:55 Dose: 40 mg
--- NOTE | 2017-02-27 11:41 | PDOC.PULCC ---
CCU Progress Note: Subj/Obj - Subjective Date: 02/27/17 Time: 09:00 Subjective: Still struggling to breathe at times. Doesn't want to use BiPAP. Seems confused to me. - ROS Review of Systems: cough, congestion, shortness of breath - Objective Allergies/Adverse Reactions: Allergies Allergy/AdvReac Type Severity Reaction Status Date / Time levofloxacin [From Levaquin] Allergy Severe HEART Verified 02/25/17 14:50 RACING/SOB Medications: Current Medications Acetaminophen (Tylenol) 650 mg PO Q4H PRN PRN Reason: Headache/Fever or Pain Albuterol/Ipratropium (Duoneb) 3 ml NEB [id number] [facility] Last Admin: 02/27/17 09:58 Dose: Not Given Alprazolam (Xanax) 0.25 mg PO TIDPRN PRN PRN Reason: Anxiety Last Admin: 02/27/17 03:53 Dose: 0.25 mg Aspirin (Aspirin) 325 mg PO DAILY [facility] Last Admin: 02/27/17 09:21 Dose: 325 mg Carvedilol (Coreg) 3.125 mg PO BID [facility] Last Admin: 02/27/17 09:21 Dose: 3.125 mg Enoxaparin Sodium (Lovenox) 40 mg SC 0900 [facility] Last Admin: 02/27/17 09:21 Dose: 40 mg Famotidine (Pepcid) 20 mg PO BID [facility] Last Admin: 02/27/17 09:21 Dose: 20 mg Guaifenesin/Dextromethorphan (Robitussin Dm) 15 ml PO Q4H PRN PRN Reason: Cough Azithromycin 500 mg/ Sodium (Chloride) 250 mls @ 250 mls/hr IVPB 1300 [facility] Last Admin: 02/26/17 11:42 Dose: 250 mls Sodium Chloride (Normal Saline 0.9%) 1,000 mls @ 70 mls/hr IV .[id number] [facility] Last Admin: 02/26/17 20:58 Dose: 1,000 mls Ceftriaxone Sodium 1 gm/ (Syringe 0.4 ml/ Sterile Water) 10 mls @ 120 mls/hr SLOW IVP 1830 [facility] Last Admin: 02/26/17 16:44 Dose: 10 mls Methylprednisolone Sodium Succinate (Solu-Medrol) 40 mg IVP Q6HR [facility] Last Admin: 02/27/17 06:17 Dose: 40 mg Nitroglycerin (Nitro-Bid 2% Ointment) 0.5 inch TOP Q8HR [facility] Last Admin: 02/27/17 06:17 Dose: 0.5 inch Senna (Senokot) 2 tab PO HSPRN PRN PRN Reason: Constipation Simvastatin (Zocor) 40 mg PO HS [facility] Last Admin: 02/26/17 20:55 Dose: 40 mg MAR Reviewed: Yes Vital Signs and I&O: Vital Signs Temp 98.4 F 02/27/17 08:00 Pulse 98 02/27/17 08:00 Resp 20 02/27/17 08:00 BP 155/86 H 02/27/17 07:42 Pulse Ox 92 L 02/27/17 08:00 Intake & Output 02/26/17 02/27/17 02/27/17 18:59 06:59 18:59 Intake Total 1800 997 Output Total 950 Balance 850 997 Intake: Intake, IV Amount 1200 777 Oral 600 220 Output: Urine 950 Other: Voiding Method Bedside Commode Bedside Commode Bedside Commode # Urine Diapers 3 Spontaneous Breathing Test: BIPAP/IPAP (intermittent use) CCU Progress Note: Exam - Physical Exam Deviation from normal: mod resp distress HEENT: PERRLA, moist MMs Neck: no nodes, no JVD Cardiovascular: RRR Focused Respiratory Location: wheezes: Right, Left Gastrointestinal: soft, non-tender, no distention Musculoskeletal: no edema Neurological: non-focal, moves all 4 limbs Deviation from normal: confused Skin: no rash - Labs Result Diagrams: 02/27/17 08:50 02/27/17 08:50 Lab results: Laboratory Results - last 24 hr 02/27/17 02/27/17 08:50 08:50 WBC 7.6 RBC 3.95 L Hgb 12.5 Hct 39.6 MCV 100.0 H MCH 31.6 H MCHC 31.5 L RDW 13.7 Plt Count 275 MPV 6.7 L Neutrophils % 88.1 H Lymphocytes % 5.8 L Monocytes % 5.7 Eosinophils % 0.1 Basophils % 0.3 Neutrophils # 6.7 H Lymphocytes # 0.4 L Monocytes # 0.4 Eosinophils # 0.0 Basophils # 0.0 Sodium 135 L Potassium 4.2 Chloride 93 L Carbon Dioxide 33 H Anion Gap 13 BUN 8 L Creatinine 0.57 L Estimated GFR (MDRD) Greater than 90 Glucose 133 H Calcium 8.7 CCU Progress Note: A/P - Problems (1) Acute respiratory failure with hypoxia and hypercapnia Current Visit: Yes Status: Acute Code(s): J96.01 - ACUTE RESPIRATORY FAILURE WITH HYPOXIA; J96.02 - ACUTE RESPIRATORY FAILURE WITH HYPERCAPNIA (2) COPD with exacerbation Current Visit: Yes Status: Acute Code(s): J44.1 - CHRONIC OBSTRUCTIVE PULMONARY DISEASE W (ACUTE) EXACERBATION (3) Tobacco abuse Current Visit: Yes Status: Chronic Code(s): Z72.0 - TOBACCO USE - Time Spent with Patient Time: 50% of the time was spent in coordination of care (as documented) at patient's floor/unit and/or counseling patient. - Plan Plan: I put her back on BiPAP Continue steroids, Nebs, and abx Need to stay in IMCU
[2017-02-27] MEDS: Azithromycin 500 MG in Sodium Chloride 0.9% 250 ML 250 ML IVPB SCH (12:36)
[2017-02-27] MEDS ORDERED: Metoprolol Tartrate 25 MG TAB PO SCH (14:00)
[2017-02-27] MEDS: cefTRIAXone\\ROCEPHIN 1 GM, Syringe 0.4 ML in Sterile Water 9.6 ML SLOW IVP SCH (18:28)
[2017-02-27] MEDS: Metoprolol Tartrate 25 MG TAB PO SCH (20:26)
[2017-02-27] MEDS: Simvastatin 40 MG TAB PO SCH (20:26)
[2017-02-27] MEDS: Sodium Chloride 0.9% 1,000 ML IV SCH (23:07)
[2017-02-28] MEDS: Sodium Chloride 0.9% 1,000 ML IV SCH ×2 (02:00→21:31)
[2017-02-28 04:31] LABS: #Lymphocytes 0.7 thou/uL (1.20-3.40); #Monocytes 0.6 thou/uL (0.11-0.59); #Neutrophils 8.7 thou/uL (1.40-6.50); %Basophils 0.1 % (0.0-1.0); %Eosinophils 0.1 % (0.0-10.0); %Lymphocytes 7.1 % (21.0-51.0); %Neutrophils 86.7 % (42.0-75.0); Hemoglobin 12.9 g/dL (12.0-16.0); Mean Corpuscular HGB CONC 31.2 g/dL (32.0-36.0); Mean Corpuscular Hemoglobin 31.2 pg (27.0-31.0); Mean Platelet Volume 6.6 fL (7.4-10.4); Platelet Count 354 thou/uL (130-400); RBC Distribution Width 13.6 % (11.5-14.5); Red Blood Cell (RBC) Count 4.13 mill/uL (4.20-5.40)
[2017-02-28 04:47] LABS: Anion Gap 13 mmol/L (10-20); BUN (Urea Nitrogen) 10 mg/dL (9.8-20.1); Calc. Creatinine Clearance 99 mL/min (70-130); Calcium 8.8 mg/dL (7.8-10.44); Carbon Dioxide 33 mmol/L (23-31); Chloride 93 mmol/L (98-107); Estimated GFR-MDRD Greater than 90; Glucose 146 mg/dL (80-115); Sodium 135 mmol/L (136-145)
[2017-02-28] MEDS: Nitroglycerin 2% Ointment 1 INCH/1 GM Packet TOP SCH (05:33)
--- NOTE | 2017-02-28 08:44 | PDOC.PULCC ---
CCU Progress Note: Subj/Obj - Subjective Date: 02/28/17 Time: 08:42 - ROS Review of Systems: cough, congestion, shortness of breath - Objective Allergies/Adverse Reactions: Allergies Allergy/AdvReac Type Severity Reaction Status Date / Time levofloxacin [From Levaquin] Allergy Severe HEART Verified 02/25/17 14:50 RACING/SOB Medications: Current Medications Acetaminophen (Tylenol) 650 mg PO Q4H PRN PRN Reason: Headache/Fever or Pain Albuterol/Ipratropium (Duoneb) 3 ml NEB [id number] [facility] Last Admin: 02/28/17 08:02 Dose: 3 ml Alprazolam (Xanax) 0.25 mg PO TIDPRN PRN PRN Reason: Anxiety Last Admin: 02/27/17 23:07 Dose: 0.25 mg Aspirin (Aspirin) 325 mg PO DAILY [facility] Last Admin: 02/27/17 09:21 Dose: 325 mg Enoxaparin Sodium (Lovenox) 40 mg SC 0900 [facility] Last Admin: 02/27/17 09:21 Dose: 40 mg Famotidine (Pepcid) 20 mg PO BID [facility] Last Admin: 02/27/17 20:26 Dose: 20 mg Guaifenesin/Dextromethorphan (Robitussin Dm) 15 ml PO Q4H PRN PRN Reason: Cough HCTZ/Losartan Potassium (Hyzaar 100/25) 1 tab PO DAILY [facility] Azithromycin 500 mg/ Sodium (Chloride) 250 mls @ 250 mls/hr IVPB 1300 [facility] Last Admin: 02/27/17 12:36 Dose: 250 mls Sodium Chloride (Normal Saline 0.9%) 1,000 mls @ 70 mls/hr IV .[id number] [facility] Last Admin: 02/28/17 02:00 Dose: 1,000 mls Ceftriaxone Sodium 1 gm/ (Syringe 0.4 ml/ Sterile Water) 10 mls @ 120 mls/hr SLOW IVP 1830 [facility] Last Admin: 02/27/17 18:28 Dose: 10 mls Metoprolol Tartrate (Lopressor) 25 mg PO BID [facility] Last Admin: 02/27/17 20:26 Dose: 25 mg Senna (Senokot) 2 tab PO HSPRN PRN PRN Reason: Constipation Simvastatin (Zocor) 40 mg PO HS [facility] Last Admin: 02/27/17 20:26 Dose: 40 mg MAR Reviewed: Yes Vital Signs and I&O: Vital Signs Temp 97.1 F L 02/28/17 07:59 Pulse 100 02/28/17 08:02 Resp 25 H 02/28/17 08:02 BP 181/102 H 02/28/17 07:59 Pulse Ox 97 02/28/17 08:02 Intake & Output 02/27/17 02/28/17 02/28/17 18:59 06:59 18:59 Intake Total 990 Balance 990 Weight 138 lb 8 oz Intake: Intake, IV Amount 840 Oral 150 Other: Voiding Method Bedside Commode Bedside Commode # Urine Diapers 3 # Bowel Movement Diapers 2 Spontaneous Breathing Test: BIPAP/IPAP CCU Progress Note: Exam - Physical Exam Deviation from normal: resp distress HEENT: PERRLA, moist MMs, sclera anicteric Neck: no nodes, no JVD Cardiovascular: RRR Respiratory: prolonged expiratory phase, wheezes Gastrointestinal: soft, non-tender, no distention Musculoskeletal: no edema Neurological: non-focal, normal sensation, moves all 4 limbs Lymphatic: no nodes Psychiatric: normal affect, A&O x 3 Skin: no rash - Labs Result Diagrams: 02/28/17 04:06 02/28/17 04:06 Lab results: Laboratory Results - last 24 hr 02/27/17 02/27/17 02/28/17 08:50 08:50 04:06 WBC 7.6 RBC 3.95 L Hgb 12.5 Hct 39.6 MCV 100.0 H MCH 31.6 H MCHC 31.5 L RDW 13.7 Plt Count 275 MPV 6.7 L Neutrophils % 88.1 H Lymphocytes % 5.8 L Monocytes % 5.7 Eosinophils % 0.1 Basophils % 0.3 Neutrophils # 6.7 H Lymphocytes # 0.4 L Monocytes # 0.4 Eosinophils # 0.0 Basophils # 0.0 Sodium 135 L 135 L Potassium 4.2 4.0 Chloride 93 L 93 L Carbon Dioxide 33 H 33 H Anion Gap 13 13 BUN 8 L 10 Creatinine 0.57 L 0.56 L Estimated GFR (MDRD) Greater than 90 Greater than 90 Glucose 133 H 146 H Calcium 8.7 8.8 02/28/17 04:06 WBC 10.0 RBC 4.13 L Hgb 12.9 Hct 41.4 MCV 100.0 H MCH 31.2 H MCHC 31.2 L RDW 13.6 Plt Count 354 MPV 6.6 L Neutrophils % 86.7 H Lymphocytes % 7.1 L Monocytes % 6.0 Eosinophils % 0.1 Basophils % 0.1 Neutrophils # 8.7 H Lymphocytes # 0.7 L Monocytes # 0.6 H Eosinophils # 0.0 Basophils # 0.0 Sodium Potassium Chloride Carbon Dioxide Anion Gap BUN Creatinine Estimated GFR (MDRD) Glucose Calcium CCU Progress Note: A/P - Problems (1) Acute respiratory failure with hypoxia and hypercapnia Current Visit: Yes Status: Acute Code(s): J96.01 - ACUTE RESPIRATORY FAILURE WITH HYPOXIA; J96.02 - ACUTE RESPIRATORY FAILURE WITH HYPERCAPNIA (2) COPD with exacerbation Current Visit: Yes Status: Acute Code(s): J44.1 - CHRONIC OBSTRUCTIVE PULMONARY DISEASE W (ACUTE) EXACERBATION (3) Tobacco abuse Current Visit: Yes Status: Chronic Code(s): Z72.0 - TOBACCO USE - Time Spent with Patient Time: 50% of the time was spent in coordination of care (as documented) at patient's floor/unit and/or counseling patient. - Plan Plan: Maybe a little better. I will decrease her steroid dose continue nebs, abx Continues to need bipap prn
[2017-02-28] MEDS: Enoxaparin Sodium 40 MG/0.4 ML SYRINGE SC SCH (08:45)
[2017-02-28] MEDS: Metoprolol Tartrate 25 MG TAB PO SCH (08:45)
[2017-02-28] MEDS: Aspirin 325 MG TAB PO SCH (08:45)
[2017-02-28] MEDS: Losartan/Hydrochlorothiazide 100 mg/25 mg Tablet PO SCH (08:45)
[2017-02-28] MEDS: Famotidine 20 MG TAB PO SCH ×2 (08:45→21:30)
--- NOTE | 2017-02-28 10:46 | PDOC.PN ---
- Subjective Encounter Start Date: 02/28/17 Encounter Start Time: 09:30 Subjective: still sob, says she is better -: is off bipap now to eat her breakfast - Objective Resuscitation Status: Resuscitation Status FULL:Full Resuscitation MAR Reviewed: Yes Vital Signs & Weight: Vital Signs (12 hours) Temp Pulse Resp BP Pulse Ox 02/28/17 08:02 100 25 H 97 02/28/17 07:59 97.1 F L 94 22 H 181/102 H 99 02/28/17 05:38 87 18 167/88 H 100 02/28/17 05:34 177/88 H 02/28/17 04:00 171/115 H 02/28/17 03:30 97.7 F 104 H 31 H 192/105 H 99 02/28/17 02:07 76 18 97 02/28/17 00:35 74 18 100 02/28/17 00:00 97.7 F 86 25 H 167/100 H 99 Weight Weight 138 lb 8 oz I&O: 02/27/17 02/28/17 03/01/17 06:59 06:59 06:59 Intake Total 2797 990 Output Total 950 Balance 1847 990 Result Diagrams: 02/28/17 04:06 02/28/17 04:06 Phys Exam - Physical Examination HEENT: PERRLA, moist MMs Neck: no JVD, supple Respiratory: no rales, wheezing present Cardiovascular: RRR, no significant murmur Gastrointestinal: soft, non-tender, positive bowel sounds Musculoskeletal: no edema, pulses present Neurological: non-focal, moves all 4 limbs Psychiatric: A&O x 3 Dx/Plan (1) COPD with exacerbation Code(s): J44.1 - CHRONIC OBSTRUCTIVE PULMONARY DISEASE W (ACUTE) EXACERBATION Status: Acute (2) Acute respiratory failure with hypoxia and hypercapnia Code(s): J96.01 - ACUTE RESPIRATORY FAILURE WITH HYPOXIA; J96.02 - ACUTE RESPIRATORY FAILURE WITH HYPERCAPNIA Status: Acute (3) Demand ischemia of myocardium Code(s): I24.8 - OTHER FORMS OF ACUTE ISCHEMIC HEART DISEASE Status: Acute (4) Tobacco abuse Code(s): Z72.0 - TOBACCO USE Status: Chronic (5) Dyslipidemia Code(s): E78.5 - HYPERLIPIDEMIA, UNSPECIFIED Status: Chronic - Plan bipap prn -: is recovering slowly -: still wheezing -: on steroids, nebs, azithro and ceftriaxone -: may dc lopressor until she stops wheezing if ok with * . Review of Systems - Medications/Allergies Allergies/Adverse Reactions: Allergies Allergy/AdvReac Type Severity Reaction Status Date / Time levofloxacin [From Levaquin] Allergy Severe HEART Verified 02/25/17 14:50 RACING/SOB Medications: Current Medications Acetaminophen (Tylenol) 650 mg PO Q4H PRN PRN Reason: Headache/Fever or Pain Albuterol/Ipratropium (Duoneb) 3 ml NEB [id number] [facility] Last Admin: 02/28/17 08:02 Dose: 3 ml Alprazolam (Xanax) 0.25 mg PO TIDPRN PRN PRN Reason: Anxiety Last Admin: 02/27/17 23:07 Dose: 0.25 mg Aspirin (Aspirin) 325 mg PO DAILY [facility] Last Admin: 02/28/17 08:45 Dose: 325 mg Enoxaparin Sodium (Lovenox) 40 mg SC 0900 [facility] Last Admin: 02/28/17 08:45 Dose: 40 mg Famotidine (Pepcid) 20 mg PO BID [facility] Last Admin: 02/28/17 08:45 Dose: 20 mg Guaifenesin/Dextromethorphan (Robitussin Dm) 15 ml PO Q4H PRN PRN Reason: Cough HCTZ/Losartan Potassium (Hyzaar 100/25) 1 tab PO DAILY [facility] Last Admin: 02/28/17 08:45 Dose: 1 tab Azithromycin 500 mg/ Sodium (Chloride) 250 mls @ 250 mls/hr IVPB 1300 [facility] Last Admin: 02/27/17 12:36 Dose: 250 mls Sodium Chloride (Normal Saline 0.9%) 1,000 mls @ 70 mls/hr IV .[id number] [facility] Last Admin: 02/28/17 02:00 Dose: 1,000 mls Ceftriaxone Sodium 1 gm/ (Syringe 0.4 ml/ Sterile Water) 10 mls @ 120 mls/hr SLOW IVP 1830 [facility] Last Admin: 02/27/17 18:28 Dose: 10 mls Methylprednisolone Sodium Succinate (Solu-Medrol) 20 mg IVP Q6HR [facility] Metoprolol Tartrate (Lopressor) 25 mg PO BID [facility] Last Admin: 02/28/17 08:45 Dose: 25 mg Senna (Senokot) 2 tab PO HSPRN PRN PRN Reason: Constipation Simvastatin (Zocor) 40 mg PO HS [facility] Last Admin: 02/27/17 20:26 Dose: 40 mg
[2017-02-28] MEDS: Azithromycin 500 MG in Sodium Chloride 0.9% 250 ML 250 ML IVPB SCH (12:29)
[2017-02-28] MEDS: cefTRIAXone\\ROCEPHIN 1 GM, Syringe 0.4 ML in Sterile Water 9.6 ML SLOW IVP SCH (18:45)
[2017-02-28] MEDS: Simvastatin 40 MG TAB PO SCH (21:30)
[2017-02-28] MEDS: Metoprolol Tartrate 50 MG TAB PO SCH (21:30)
[2017-03-01 04:40] LABS: #Lymphocytes 0.6 thou/uL (1.20-3.40); #Monocytes 0.5 thou/uL (0.11-0.59); %Lymphocytes 7.3 % (21.0-51.0); %Monocytes 5.8 % (0.0-10.0); %Neutrophils 86.8 % (42.0-75.0); Hemoglobin 12.7 g/dL (12.0-16.0); Mean Corpuscular HGB CONC 30.9 g/dL (32.0-36.0); Mean Corpuscular Hemoglobin 30.9 pg (27.0-31.0); Mean Platelet Volume 6.6 fL (7.4-10.4); Platelet Count 330 thou/uL (130-400); RBC Distribution Width 13.5 % (11.5-14.5); Red Blood Cell (RBC) Count 4.09 mill/uL (4.20-5.40); White Blood Cell (WBC) Count 8.1 thou/uL (4.8-10.8)
[2017-03-01 04:50] LABS: BUN (Urea Nitrogen) 8 mg/dL (9.8-20.1); Calc. Creatinine Clearance 101 mL/min (70-130); Calcium 8.8 mg/dL (7.8-10.44); Estimated GFR-MDRD Greater than 90; Glucose 152 mg/dL (80-115)
[2017-03-01 05:00] LABS: Chloride 87 mmol/L (98-107); Potassium 3.5 mmol/L (3.5-5.1); Sodium 137 mmol/L (136-145)
[2017-03-01 05:03] LABS: Anion Gap 15 mmol/L (10-20); Carbon Dioxide 39 mmol/L (23-31)
[2017-03-01] MEDS ORDERED: hydrALAZINE 20 MG/ML VIAL SLOW IVP PRN (05:48)
[2017-03-01] MEDS: ALPRAZolam 0.25 MG TAB PO PRN (06:58)
[2017-03-01] MEDS: Aspirin 325 MG TAB PO SCH (09:15)
[2017-03-01] MEDS: Enoxaparin Sodium 40 MG/0.4 ML SYRINGE SC SCH (09:15)
[2017-03-01] MEDS: Metoprolol Tartrate 50 MG TAB PO SCH ×2 (09:15→21:21)
[2017-03-01] MEDS: Famotidine 20 MG TAB PO SCH ×2 (09:15→21:21)
[2017-03-01] MEDS: Losartan/Hydrochlorothiazide 100 mg/25 mg Tablet PO SCH (09:15)
[2017-03-01] MEDS: Amlodipine 5 MG TAB PO SCH (09:52)
[2017-03-01 10:56] LABS: Actual Bicarbonate (HCO3a) 45.6 mEq/L (22-26); Base Excess (BEa) 17.7 mEq/L (0 (+/-) 2.5); Calcium, Ionized 1.1 mmol/L (1.12-1.30); Hematocrit-ABG 46.3 % (36.0-47.0); Hemoglobin (Hb) 13.7 g/dL (12.0-16.0); O2 Tension (PaO2) 101.5 mmHg (80.0-100.0); pH, Arterial 7.44 (7.35-7.45)
[2017-03-01 10:58] LABS: ALV-art Gradient 42.385 (0-20); CO2 Tension 68.7 mmHg (35.0-45.0); Puncture Site RRA
--- NOTE | 2017-03-01 11:11 | RAD ---
PORTABLE CHEST: HISTORY: Dyspnea. COMPARISON: 02/25/2017 study. FINDINGS: Heart size within normal limits. COPD type changes are present. Interstitial changes in the bases a re stable and appear to be chronic. IMPRESSION: Chronic interstitial change. POS: IS[facility]
--- NOTE | 2017-03-01 12:12 | PDOC.PN ---
- Subjective Encounter Start Date: 03/01/17 Encounter Start Time: 11:00 Subjective: did not wear bipap last night -: lethargic but oriented - Objective Resuscitation Status: Resuscitation Status FULL:Full Resuscitation MAR Reviewed: Yes Vital Signs & Weight: Vital Signs (12 hours) Temp Pulse Resp BP BP Pulse Ox 03/01/17 11:00 96.4 F L 72 18 160/82 H 100 03/01/17 10:49 78 20 100 03/01/17 09:52 88 158/80 H 03/01/17 08:40 91 20 92 L 03/01/17 08:00 97.5 F L 03/01/17 07:56 95 24 H 167/113 H 100 03/01/17 07:00 191/111 H 03/01/17 06:28 78 03/01/17 06:00 172/104 H 03/01/17 04:00 95 03/01/17 03:52 97.9 F 78 20 173/101 H 100 03/01/17 02:38 79 16 100 Weight Weight 137 lb 8 oz I&O: 02/28/17 03/01/17 03/02/17 06:59 06:59 06:59 Intake Total 990 2595 Balance 990 2595 Result Diagrams: 03/01/17 04:16 03/01/17 04:16 Phys Exam - Physical Examination HEENT: PERRLA, sclera anicteric Neck: no JVD, supple Respiratory: no rales, wheezing present Cardiovascular: RRR, no significant murmur Gastrointestinal: soft, non-tender, positive bowel sounds Musculoskeletal: no edema, pulses present Neurological: non-focal, moves all 4 limbs Dx/Plan (1) COPD with exacerbation Code(s): J44.1 - CHRONIC OBSTRUCTIVE PULMONARY DISEASE W (ACUTE) EXACERBATION Status: Acute (2) Acute respiratory failure with hypoxia and hypercapnia Code(s): J96.01 - ACUTE RESPIRATORY FAILURE WITH HYPOXIA; J96.02 - ACUTE RESPIRATORY FAILURE WITH HYPERCAPNIA Status: Acute (3) Demand ischemia of myocardium Code(s): I24.8 - OTHER FORMS OF ACUTE ISCHEMIC HEART DISEASE Status: Acute (4) Tobacco abuse Code(s): Z72.0 - TOBACCO USE Status: Chronic (5) Dyslipidemia Code(s): E78.5 - HYPERLIPIDEMIA, UNSPECIFIED Status: Chronic - Plan slow recovery -: is on steroids, azithro and ceftriaxone -: gentle iv hydration -: suggest dc beta blockers and hctz for now -: still pco2 is high on abg, cxr no new changes * . Review of Systems - Medications/Allergies Allergies/Adverse Reactions: Allergies Allergy/AdvReac Type Severity Reaction Status Date / Time levofloxacin [From Levaquin] Allergy Severe HEART Verified 02/25/17 14:50 RACING/SOB Medications: Current Medications Acetaminophen (Tylenol) 650 mg PO Q4H PRN PRN Reason: Headache/Fever or Pain Albuterol/Ipratropium (Duoneb) 3 ml NEB [id number] [facility] Last Admin: 03/01/17 10:49 Dose: 3 ml Alprazolam (Xanax) 0.25 mg PO TIDPRN PRN PRN Reason: Anxiety Last Admin: 03/01/17 06:58 Dose: 0.25 mg Amlodipine Besylate (Norvasc) 5 mg PO DAILY [facility] Last Admin: 03/01/17 09:52 Dose: 5 mg Aspirin (Aspirin) 325 mg PO DAILY [facility] Last Admin: 03/01/17 09:15 Dose: 325 mg Enoxaparin Sodium (Lovenox) 40 mg SC 0900 [facility] Last Admin: 03/01/17 09:15 Dose: 40 mg Famotidine (Pepcid) 20 mg PO BID [facility] Last Admin: 03/01/17 09:15 Dose: 20 mg Guaifenesin/Dextromethorphan (Robitussin Dm) 15 ml PO Q4H PRN PRN Reason: Cough Last Admin: 03/01/17 04:06 Dose: 15 ml HCTZ/Losartan Potassium (Hyzaar 100/25) 1 tab PO DAILY [facility] Last Admin: 03/01/17 09:15 Dose: 1 tab Hydralazine HCl (Apresoline) 10 mg SLOW IVP Q4H PRN PRN Reason: SBP Greater Than 170 Last Admin: 03/01/17 06:28 Dose: 10 mg Azithromycin 500 mg/ Sodium (Chloride) 250 mls @ 250 mls/hr IVPB 1300 [facility] Last Admin: 02/28/17 12:29 Dose: 250 mls Sodium Chloride (Normal Saline 0.9%) 1,000 mls @ 70 mls/hr IV .[id number] [facility] Last Admin: 02/28/17 21:31 Dose: 1,000 mls Ceftriaxone Sodium 1 gm/ (Syringe 0.4 ml/ Sterile Water) 10 mls @ 120 mls/hr SLOW IVP 1830 [facility] Last Admin: 02/28/17 18:45 Dose: 10 mls Methylprednisolone Sodium Succinate (Solu-Medrol) 20 mg IVP Q6HR [facility] Last Admin: 03/01/17 06:29 Dose: 20 mg Metoprolol Tartrate (Lopressor) 50 mg PO BID [facility] Last Admin: 03/01/17 09:15 Dose: 50 mg Senna (Senokot) 2 tab PO HSPRN PRN PRN Reason: Constipation Simvastatin (Zocor) 40 mg PO HS [facility] Last Admin: 02/28/17 21:30 Dose: 40 mg
[2017-03-01] MEDS: Azithromycin 500 MG in Sodium Chloride 0.9% 250 ML 250 ML IVPB SCH (12:28)
[2017-03-01] MEDS ORDERED: Ziprasidone 20 MG VIAL IM PRN (12:36)
--- NOTE | 2017-03-01 13:03 | PRG ---
DATE OF SERVICE: 03/01/2017 SUBJECTIVE: The patient is still experiencing signs of delirium. She has gotten better from a respi ratory standpoint. She is not requiring BiPAP near as often. OBJECTIVE: VITAL SIGNS: Temperature 96.4, pulse 72, respirations 18, O2 sat 100%, blood pressure 160/82. HEENT: Unremarkable. NECK: No JVD. LUNGS: A few expiratory wheezing. CARDIAC: S1 and S2 regular. ABDOMEN: Soft. EXTREMITIES: No edema. LABORATORY DATA: White blood cell count 8.1, hematocrit 41, platelet count is 330, pH 7.44, pCO2 68, PO2 101 that was on 3 liters nasal cannula. Sodium 137, potassium 3.5, chloride 87, CO2 39, BUN 8, creatinine 0.5, glucose 152. ASSESSMENT: 1. Chronic obstructive pulmonary disease with severe exacerbation. 2. Acute on chronic respiratory failure, requiring mechanical ventilation - chest x-ray today showin g no abrupt changes. 3. Delirium. PLAN: 1. Continue nebulization treatments and antibiotics. 2. Decrease steroid dose. 3. Consider Geodon as needed for delirium.
[2017-03-01] MEDS: Sodium Chloride 0.9% 1,000 ML IV SCH (16:54)
[2017-03-01] MEDS: cefTRIAXone\\ROCEPHIN 1 GM, Syringe 0.4 ML in Sterile Water 9.6 ML SLOW IVP SCH (18:25)
[2017-03-01] MEDS: Simvastatin 40 MG TAB PO SCH (21:20)
[2017-03-02 04:22] LABS: #Lymphocytes 0.8 thou/uL (1.20-3.40); #Monocytes 1.2 thou/uL (0.11-0.59); %Basophils 0.3 % (0.0-1.0); %Eosinophils 0.1 % (0.0-10.0); %Lymphocytes 7.4 % (21.0-51.0); %Monocytes 10.6 % (0.0-10.0); %Neutrophils 81.5 % (42.0-75.0); Hemoglobin 14.6 g/dL (12.0-16.0); Mean Corpuscular HGB CONC 31.2 g/dL (32.0-36.0); Mean Corpuscular Hemoglobin 30.9 pg (27.0-31.0); Mean Corpuscular Volume 99.1 fl (81.0-99.0); Mean Platelet Volume 6.6 fL (7.4-10.4); Platelet Count 400 thou/uL (130-400); RBC Distribution Width 13.6 % (11.5-14.5); Red Blood Cell (RBC) Count 4.71 mill/uL (4.20-5.40)
[2017-03-02 04:57] LABS: BUN (Urea Nitrogen) 14 mg/dL (9.8-20.1); Calc. Creatinine Clearance 98 mL/min (70-130); Calcium 9.7 mg/dL (7.8-10.44); Estimated GFR-MDRD Greater than 90; Glucose 133 mg/dL (80-115)
[2017-03-02 05:06] LABS: Anion Gap 14 mmol/L (10-20); Chloride 83 mmol/L (98-107); Potassium 3.2 mmol/L (3.5-5.1); Sodium 138 mmol/L (136-145)
[2017-03-02 05:09] LABS: Carbon Dioxide 44 mmol/L (23-31)
[2017-03-02] MEDS: Aspirin 325 MG TAB PO SCH (08:32)
[2017-03-02] MEDS: Metoprolol Tartrate 50 MG TAB PO SCH ×2 (08:33→21:26)
[2017-03-02] MEDS: Losartan/Hydrochlorothiazide 100 mg/25 mg Tablet PO SCH (08:33)
[2017-03-02] MEDS: Amlodipine 5 MG TAB PO SCH (08:33)
[2017-03-02] MEDS: Enoxaparin Sodium 40 MG/0.4 ML SYRINGE SC SCH (08:34)
[2017-03-02] MEDS: Famotidine 20 MG TAB PO SCH ×2 (08:34→21:27)
[2017-03-02] MEDS ORDERED: ALPRAZolam 0.25 MG TAB PO PRN (11:20)
--- NOTE | 2017-03-02 11:33 | PRG ---
DATE OF SERVICE: 03/02/2017 SUBJECTIVE: The patient looks a little better today. She is still confused, but less so than yester day. OBJECTIVE: VITAL SIGNS: Temperature 98.1, pulse 92, blood pressure 133/80, O2 sat 93% on 3 liters. A 24-hour i ntake 940, out not quantitated. HEENT: Unremarkable. NECK: No JVD. LUNGS: A few expiratory wheezes, but overall better. CARDIAC: S1 and S2 regular. ABDOMEN: Soft. EXTREMITIES: No edema. LABORATORY DATA: White blood cell count 11, hematocrit 46.7, platelet count 400. Sodium 138, potass ium 3.2, chloride 83, CO2 of 44, BUN 14, creatinine 0.7, glucose 133. ASSESSMENT: 1. Chronic obstructive pulmonary disease with severe exacerbation. 2. Development of a chronic respiratory alkalosis. 3. Delirium. PLAN: 1. Decrease steroid dose tomorrow. 2. Add a dose of Diamox. 3. Decrease alprazolam. 4. Continue Geodon.
[2017-03-02] MEDS ORDERED: AcetaZOLAMIDE 250 MG TAB PO SCH (12:00)
--- NOTE | 2017-03-02 12:09 | PDOC.PN ---
- Subjective Encounter Start Date: 03/02/17 Encounter Start Time: 11:25 Subjective: lethargic, oriented, follows verbal stimuli - Objective Resuscitation Status: Resuscitation Status FULL:Full Resuscitation MAR Reviewed: Yes Vital Signs & Weight: Vital Signs (12 hours) Temp Pulse Resp BP BP Pulse Ox 03/02/17 11:54 97.8 F 70 24 H 149/90 H 100 03/02/17 10:30 83 16 03/02/17 08:33 92 133/80 03/02/17 08:05 99 18 03/02/17 08:00 98.1 F 92 24 H 93 L 03/02/17 07:00 98.1 F 87 22 H 134/76 93 L 03/02/17 03:30 97.6 F 82 14 127/62 100 03/02/17 02:53 65 16 100 Weight Weight 129 lb 6.4 oz I&O: 03/01/17 03/02/17 03/03/17 06:59 06:59 06:59 Intake Total 2595 940 Balance 2595 940 Result Diagrams: 03/02/17 03:56 03/02/17 03:56 Phys Exam - Physical Examination HEENT: PERRLA, moist MMs Neck: no JVD, supple Respiratory: no rales, wheezing present Cardiovascular: RRR, no rub Gastrointestinal: soft, non-tender, no distention, positive bowel sounds Musculoskeletal: no edema, pulses present Neurological: non-focal, moves all 4 limbs Dx/Plan (1) COPD with exacerbation Code(s): J44.1 - CHRONIC OBSTRUCTIVE PULMONARY DISEASE W (ACUTE) EXACERBATION Status: Acute (2) Acute respiratory failure with hypoxia and hypercapnia Code(s): J96.01 - ACUTE RESPIRATORY FAILURE WITH HYPOXIA; J96.02 - ACUTE RESPIRATORY FAILURE WITH HYPERCAPNIA Status: Acute (3) Demand ischemia of myocardium Code(s): I24.8 - OTHER FORMS OF ACUTE ISCHEMIC HEART DISEASE Status: Acute (4) Tobacco abuse Code(s): Z72.0 - TOBACCO USE Status: Chronic (5) Dyslipidemia Code(s): E78.5 - HYPERLIPIDEMIA, UNSPECIFIED Status: Chronic - Plan is on zithromax and ceftriaxone -: solumedrol 20mg q12h -: bipap prn -: is slowly getting better -: geodon prn for confusion/behavioural issues * . Review of Systems - Medications/Allergies Allergies/Adverse Reactions: Allergies Allergy/AdvReac Type Severity Reaction Status Date / Time levofloxacin [From Levaquin] Allergy Severe HEART Verified 02/25/17 14:50 RACING/SOB Medications: Current Medications Acetaminophen (Tylenol) 650 mg PO Q4H PRN PRN Reason: Headache/Fever or Pain Last Admin: 03/02/17 08:34 Dose: 650 mg Acetazolamide (Diamox) 250 mg PO BID [facility] Stop: 03/03/17 21:01 Acetazolamide (Diamox) 250 mg PO NOW [facility] Stop: 03/02/17 14:00 Albuterol/Ipratropium (Duoneb) 3 ml NEB [id number] [facility] Last Admin: 03/02/17 10:30 Dose: 3 ml Alprazolam (Xanax) 0.125 mg PO TIDPRN PRN PRN Reason: Anxiety Amlodipine Besylate (Norvasc) 5 mg PO DAILY [facility] Last Admin: 03/02/17 08:33 Dose: 5 mg Aspirin (Aspirin) 325 mg PO DAILY [facility] Last Admin: 03/02/17 08:32 Dose: 325 mg Enoxaparin Sodium (Lovenox) 40 mg SC 0900 [facility] Last Admin: 03/02/17 08:34 Dose: 40 mg Famotidine (Pepcid) 20 mg PO BID [facility] Last Admin: 03/02/17 08:34 Dose: 20 mg Guaifenesin/Dextromethorphan (Robitussin Dm) 15 ml PO Q4H PRN PRN Reason: Cough Last Admin: 03/01/17 04:06 Dose: 15 ml HCTZ/Losartan Potassium (Hyzaar 100/25) 1 tab PO DAILY [facility] Last Admin: 03/02/17 08:33 Dose: 1 tab Hydralazine HCl (Apresoline) 10 mg SLOW IVP Q4H PRN PRN Reason: SBP Greater Than 170 Last Admin: 03/01/17 06:28 Dose: 10 mg Azithromycin 500 mg/ Sodium (Chloride) 250 mls @ 250 mls/hr IVPB 1300 [facility] Last Admin: 03/01/17 12:28 Dose: 250 mls Ceftriaxone Sodium 1 gm/ (Syringe 0.4 ml/ Sterile Water) 10 mls @ 120 mls/hr SLOW IVP 1830 [facility] Last Admin: 03/01/17 18:25 Dose: 10 mls Methylprednisolone Sodium Succinate (Solu-Medrol) 20 mg IVP Q12HR [facility] Last Admin: 03/02/17 08:34 Dose: 20 mg Metoprolol Tartrate (Lopressor) 50 mg PO BID [facility] Last Admin: 03/02/17 08:33 Dose: 50 mg Senna (Senokot) 2 tab PO HSPRN PRN PRN Reason: Constipation Simvastatin (Zocor) 40 mg PO HS [facility] Last Admin: 03/01/17 21:20 Dose: 40 mg Sodium Chloride (Flush - Normal Saline) 10 ml IVF PRN PRN PRN Reason: Saline Flush Sodium Chloride (Flush - Normal Saline) 10 ml IVF BID [facility] Last Admin: 03/02/17 08:34 Dose: 10 ml Ziprasidone (Geodon) 20 mg IM Q12H PRN PRN Reason: Agitation
[2017-03-02] MEDS: Azithromycin 500 MG in Sodium Chloride 0.9% 250 ML 250 ML IVPB SCH (12:20)
[2017-03-02] MEDS: cefTRIAXone\\ROCEPHIN 1 GM, Syringe 0.4 ML in Sterile Water 9.6 ML SLOW IVP SCH (18:08)
[2017-03-02] MEDS: Simvastatin 40 MG TAB PO SCH (21:27)
[2017-03-02] MEDS: AcetaZOLAMIDE 250 MG TAB PO SCH (21:27)
[2017-03-03 04:18] LABS: #Lymphocytes 1.4 thou/uL (1.20-3.40); #Monocytes 1.1 thou/uL (0.11-0.59); #Neutrophils 6.1 thou/uL (1.40-6.50); %Basophils 0.3 % (0.0-1.0); %Eosinophils 0.3 % (0.0-10.0); %Lymphocytes 15.7 % (21.0-51.0); %Monocytes 13.1 % (0.0-10.0); %Neutrophils 70.6 % (42.0-75.0); Hemoglobin 14.4 g/dL (12.0-16.0); Mean Corpuscular HGB CONC 31.3 g/dL (32.0-36.0); Mean Corpuscular Hemoglobin 30.7 pg (27.0-31.0); Platelet Count 385 thou/uL (130-400); RBC Distribution Width 13.7 % (11.5-14.5); Red Blood Cell (RBC) Count 4.69 mill/uL (4.20-5.40); White Blood Cell (WBC) Count 8.6 thou/uL (4.8-10.8)
[2017-03-03 04:51] LABS: ALT (SGPT) 25 U/L (8-55); AST (SGOT) 19 U/L (5-34); Alkaline Phosphatase 43 U/L (40-150); Anion Gap 14 mmol/L (10-20); BUN (Urea Nitrogen) 14 mg/dL (9.8-20.1); Bilirubin, Total 0.4 mg/dL (0.2-1.2); Calc. Creatinine Clearance 94 mL/min (70-130); Calcium 9.3 mg/dL (7.8-10.44); Carbon Dioxide 34 mmol/L (23-31); Chloride 88 mmol/L (98-107); Estimated GFR-MDRD Greater than 90; Globulin 2.6 g/dL (2.4-3.5); Glucose 110 mg/dL (80-115); Protein, Total 6.6 g/dL (6.0-8.3); Sodium 133 mmol/L (136-145)
[2017-03-03] MEDS: Amlodipine 5 MG TAB PO SCH (09:02)
[2017-03-03] MEDS: Aspirin 325 MG TAB PO SCH (09:02)
[2017-03-03] MEDS: Losartan/Hydrochlorothiazide 100 mg/25 mg Tablet PO SCH (09:02)
[2017-03-03] MEDS: AcetaZOLAMIDE 250 MG TAB PO SCH ×2 (09:02→20:49)
[2017-03-03] MEDS: Metoprolol Tartrate 50 MG TAB PO SCH ×2 (09:02→20:49)
[2017-03-03] MEDS: Enoxaparin Sodium 40 MG/0.4 ML SYRINGE SC SCH (09:03)
[2017-03-03] MEDS: Famotidine 20 MG TAB PO SCH ×2 (09:05→20:49)
[2017-03-03] MEDS: Azithromycin 500 MG in Sodium Chloride 0.9% 250 ML 250 ML IVPB SCH (13:08)
--- NOTE | 2017-03-03 13:09 | PRG ---
DATE OF SERVICE: 03/03/2017 SUBJECTIVE: The patient is doing better today. She is much more oriented and in no respiratory dist ress. She does not use BiPAP overnight. PHYSICAL EXAMINATION: VITAL SIGNS: Temperature 98.1, pulse 81, respiration rate 17, O2 sat 100%, blood pressure 102/68. HEENT: Unremarkable. NECK: No JVD. LUNGS: Clear, but distant breath sounds. CARDIAC: S1 and S2 regular. ABDOMEN: Soft. EXTREMITIES: No edema. LABORATORY DATA: White blood cell count 8.6, hematocrit 46, platelet count 385. Sodium 133, potassi um 3.0, chloride 88, CO2 of 34, BUN 14, creatinine 0.5, glucose 110. ASSESSMENT: 1. Chronic obstructive pulmonary disease exacerbation. 2. Acute on chronic respiratory failure. PLAN: 1. Replace her potassium. 2. Continue the acetazolamide for 1 more dose. 3. Transfer to the floor.
--- NOTE | 2017-03-03 15:41 | PDOC.PN ---
- Subjective Encounter Start Date: 03/03/17 Encounter Start Time: 15:40 Subjective: seen examined feeling better but still short of breath - Objective Resuscitation Status: Resuscitation Status FULL:Full Resuscitation Vital Signs & Weight: Vital Signs (12 hours) Temp Pulse Resp BP Pulse Ox 03/03/17 14:06 79 18 94 L 03/03/17 12:06 98.1 F 71 17 102/68 100 03/03/17 11:59 76 20 91 L 03/03/17 09:02 90 03/03/17 08:40 90 18 03/03/17 08:00 97.9 F 80 18 139/68 100 03/03/17 07:35 97.6 F 80 20 98 03/03/17 04:00 97.6 F 80 20 131/78 97 Weight Weight 128 lb 6.4 oz I&O: 03/02/17 03/03/17 03/04/17 06:59 06:59 06:59 Intake Total 940 260 Balance 940 260 Result Diagrams: 03/03/17 03:31 03/03/17 03:31 Phys Exam - Physical Examination Constitutional: NAD HEENT: PERRLA, moist MMs, sclera anicteric, TM's clear Neck: no nodes, no JVD, supple, full ROM Respiratory: wheezing present Cardiovascular: RRR, no significant murmur Gastrointestinal: soft, positive bowel sounds Musculoskeletal: no edema, pulses present Neurological: non-focal, normal sensation, moves all 4 limbs Dx/Plan (1) Acute respiratory failure with hypoxia and hypercapnia Code(s): J96.01 - ACUTE RESPIRATORY FAILURE WITH HYPOXIA; J96.02 - ACUTE RESPIRATORY FAILURE WITH HYPERCAPNIA Status: Acute (2) COPD with exacerbation Code(s): J44.1 - CHRONIC OBSTRUCTIVE PULMONARY DISEASE W (ACUTE) EXACERBATION Status: Acute (3) Demand ischemia of myocardium Code(s): I24.8 - OTHER FORMS OF ACUTE ISCHEMIC HEART DISEASE Status: Acute (4) Dyslipidemia Code(s): E78.5 - HYPERLIPIDEMIA, UNSPECIFIED Status: Chronic (5) Tobacco abuse Code(s): Z72.0 - TOBACCO USE Status: Chronic (6) Hypokalemia Code(s): E87.6 - HYPOKALEMIA Status: Acute - Plan plan discussed w/ family, continue antibiotics, PT/OT, delinquency prevention social worker, respiratory therapy replete potassium -: On Diamox to address the compensatory metabolic alkalosis -: Transition to oral antibiotics and subsequently the steroids -: Pulmonary following * .
[2017-03-03] MEDS: Potassium Chloride 20 MEQ TAB PO SCH (18:39)
[2017-03-03] MEDS: Simvastatin 40 MG TAB PO SCH (20:49)
[2017-03-04] MEDS: Cefdinir 300 MG CAP PO SCH (09:28)
[2017-03-04] MEDS: Azithromycin 250 MG TAB PO SCH (09:28)
[2017-03-04] MEDS: Metoprolol Tartrate 50 MG TAB PO SCH ×2 (09:28→20:15)
[2017-03-04] MEDS: Amlodipine 5 MG TAB PO SCH (09:28)
[2017-03-04] MEDS: Famotidine 20 MG TAB PO SCH (09:28)
[2017-03-04] MEDS: Aspirin 325 MG TAB PO SCH (09:28)
[2017-03-04] MEDS: Losartan/Hydrochlorothiazide 100 mg/25 mg Tablet PO SCH (09:28)
[2017-03-04] MEDS: Potassium Chloride 20 MEQ TAB PO SCH (09:29)
[2017-03-04] MEDS: Enoxaparin Sodium 40 MG/0.4 ML SYRINGE SC SCH (09:29)
--- NOTE | 2017-03-04 14:15 | PDOC.PN ---
- Subjective Encounter Start Date: 03/04/17 Encounter Start Time: 10:45 Subjective: breathing better, no sob -: is talking in full sentences now -: amb in room - Objective Resuscitation Status: Resuscitation Status FULL:Full Resuscitation MAR Reviewed: Yes Vital Signs & Weight: Vital Signs (12 hours) Temp Pulse Resp BP Pulse Ox 03/04/17 09:28 86 03/04/17 08:32 98 03/04/17 08:31 86 16 98 03/04/17 07:54 98.3 F 85 20 123/80 100 03/04/17 07:25 98.3 F 85 20 99 Weight Weight 126 lb 1.6 oz I&O: 03/03/17 03/04/17 03/05/17 06:59 06:59 06:59 Intake Total 260 350 Balance 260 350 Result Diagrams: 03/03/17 03:31 03/03/17 03:31 Phys Exam - Physical Examination HEENT: PERRLA, moist MMs Neck: no JVD, supple Respiratory: no wheezing, no rales Cardiovascular: RRR, no significant murmur Gastrointestinal: soft, non-tender, positive bowel sounds Musculoskeletal: no edema, pulses present Neurological: non-focal, moves all 4 limbs Dx/Plan (1) COPD with exacerbation Code(s): J44.1 - CHRONIC OBSTRUCTIVE PULMONARY DISEASE W (ACUTE) EXACERBATION Status: Acute (2) Acute respiratory failure with hypoxia and hypercapnia Code(s): J96.01 - ACUTE RESPIRATORY FAILURE WITH HYPOXIA; J96.02 - ACUTE RESPIRATORY FAILURE WITH HYPERCAPNIA Status: Resolved (3) Demand ischemia of myocardium Code(s): I24.8 - OTHER FORMS OF ACUTE ISCHEMIC HEART DISEASE Status: Resolved (4) Tobacco abuse Code(s): Z72.0 - TOBACCO USE Status: Chronic (5) Dyslipidemia Code(s): E78.5 - HYPERLIPIDEMIA, UNSPECIFIED Status: Chronic - Plan has improved over last 36hrs now -: delerium is improving -: on zithromax and solumedfrol -: tolerating lopressor and cozaar -: dc plan in am * . Review of Systems - Medications/Allergies Allergies/Adverse Reactions: Allergies Allergy/AdvReac Type Severity Reaction Status Date / Time levofloxacin [From Levaquin] Allergy Severe HEART Verified 02/25/17 14:50 RACING/SOB Medications: Current Medications Acetaminophen (Tylenol) 650 mg PO Q4H PRN PRN Reason: Headache/Fever or Pain Last Admin: 03/02/17 08:34 Dose: 650 mg Albuterol/Ipratropium (Duoneb) 3 ml NEB [id number] [facility] Last Admin: 03/04/17 13:35 Dose: Not Given Alprazolam (Xanax) 0.125 mg PO TIDPRN PRN PRN Reason: Anxiety Amlodipine Besylate (Norvasc) 5 mg PO DAILY [facility] Last Admin: 03/04/17 09:28 Dose: 5 mg Aspirin (Aspirin) 325 mg PO DAILY [facility] Last Admin: 03/04/17 09:28 Dose: 325 mg Azithromycin (Zithromax) 250 mg PO DAILY [facility] Stop: 03/07/17 09:01 Last Admin: 03/04/17 09:28 Dose: 250 mg Cefdinir (Omnicef) 600 mg PO DAILY [facility] Last Admin: 03/04/17 09:28 Dose: 600 mg Enoxaparin Sodium (Lovenox) 40 mg SC 0900 [facility] Last Admin: 03/04/17 09:29 Dose: 40 mg Famotidine (Pepcid) 20 mg PO BID [facility] Last Admin: 03/04/17 09:28 Dose: 20 mg Guaifenesin/Dextromethorphan (Robitussin Dm) 15 ml PO Q4H PRN PRN Reason: Cough Last Admin: 03/01/17 04:06 Dose: 15 ml HCTZ/Losartan Potassium (Hyzaar 100/25) 1 tab PO DAILY [facility] Last Admin: 03/04/17 09:28 Dose: 1 tab Hydralazine HCl (Apresoline) 10 mg SLOW IVP Q4H PRN PRN Reason: SBP Greater Than 170 Last Admin: 03/01/17 06:28 Dose: 10 mg Methylprednisolone Sodium Succinate (Solu-Medrol) 20 mg IVP Q12HR [facility] Last Admin: 03/04/17 09:29 Dose: 20 mg Metoprolol Tartrate (Lopressor) 50 mg PO BID [facility] Last Admin: 03/04/17 09:28 Dose: 50 mg Senna (Senokot) 2 tab PO HSPRN PRN PRN Reason: Constipation Simvastatin (Zocor) 40 mg PO HS [facility] Last Admin: 03/03/17 20:49 Dose: 40 mg Sodium Chloride (Flush - Normal Saline) 10 ml IVF PRN PRN PRN Reason: Saline Flush Sodium Chloride (Flush - Normal Saline) 10 ml IVF BID [facility] Last Admin: 03/04/17 09:30 Dose: 10 ml Ziprasidone (Geodon) 20 mg IM Q12H PRN PRN Reason: Agitation
--- NOTE | 2017-03-04 19:40 | PDOC.CTH ---
<Cristina Moy - Last Filed: 03/04/17 19:37> Cardiology Progress Note - Subjective The pt seen and examined. No overnight events. No cardiac complaints. She still complains of SOB with RA; however, O2 Sat shows 94-95% with RA. She has been walking around with RA without any difficulties. - Objective Vital Signs Temp Pulse Resp BP BP Pulse Ox 03/04/17 16:18 98.1 F 82 16 105/72 97 03/04/17 12:00 97.7 F 69 16 127/82 97 03/04/17 11:25 98.1 F 82 16 03/04/17 09:28 86 03/04/17 08:32 98 03/04/17 08:31 86 16 98 03/04/17 07:54 98.3 F 85 20 123/80 100 Weight 126 lb 1.6 oz 03/03/17 03/04/17 03/05/17 06:59 06:59 06:59 Intake Total 260 350 Balance 260 350 - Physical Examination General/Neuro: alert & oriented x3 Neck: no JVD present Lungs: other: (very diminished at bases) Heart: RRR Abdomen: soft Extremities: other: (No edema) - Labs Result Diagrams: 03/03/17 03:31 03/03/17 03:31 Troponin/CKMB CK-MB (CK-2) 13.2 ng/mL (0-6.6) H* 02/25/17 11:28 Troponin I 0.316 ng/mL (< 0.028) H* 02/25/17 17:29 - Assessment/Plan 1. COPD exacerbation - stable with RA; managed by classroom paraprofessional 2. Bilat PNA - on PO antibiotics; managed by Subacute Nurse 3. Demand ischemia - possible 5. HTN - stable with current medication 6. Hyperlipidemia - on Statin 7. Current smoker - Smoking cessation education given to the pt MAR reviewed * dc plan in am Review of Systems - Review of Systems Constitutional: reports: no symptoms reported EENTM: reports: no symptoms reported Respiratory: reports: see HPI Cardiac (ROS): reports: no symptoms reported ABD/GI: reports: no symptoms reported : reports: no symptoms reported Musculoskeletal: reports: no symptoms reported Skin: reports: no symptoms reported <Cali Hdz - Last Filed: 01/01/18 22:24> Cardiology Progress Note - Objective Vital Signs Temp Pulse Resp BP BP Pulse Ox 03/04/17 22:22 84 16 96 03/04/17 19:45 85 16 97 03/04/17 16:18 98.1 F 82 16 105/72 97 03/04/17 12:00 97.7 F 69 16 127/82 97 03/04/17 11:25 98.1 F 82 16 Weight 126 lb 1.6 oz 03/03/17 03/04/17 03/05/17 06:59 06:59 06:59 Intake Total 260 350 Balance 260 350 - Labs Result Diagrams: 03/03/17 03:31 03/03/17 03:31 Troponin/CKMB CK-MB (CK-2) 13.2 ng/mL (0-6.6) H* 02/25/17 11:28 Troponin I 0.316 ng/mL (< 0.028) H* 02/25/17 17:29 - Assessment/Plan Pt. seen and eval. by me. I agree with the A/P by the POWER OPERATOR. She is breathing easier today. Still some wheezing.RRR.
[2017-03-04] MEDS ORDERED: Potassium Chloride 20 MEQ TAB PO SCH (20:00)
[2017-03-04] MEDS: Simvastatin 40 MG TAB PO SCH (20:19)
--- NOTE | 2017-03-04 20:50 | PRG ---
DATE OF SERVICE: 03/04/2017 SERVICE: Pulmonary Medicine. INTERVAL HISTORY: The patient is doing really quite well from a respiratory standpoint. Her breathi ng has essentially returned to 80% of baseline. She feels much improved overall. She is sneezing an d brings up some mucus with that, but denies having any cough or sputum production. She walked aroun d the hallway today without oxygen and this was quite comfortable. She does recognize that she is wo rking a little harder to breathe when she is moving, but it does not result in any significant desatu ration. She attributes this more to her relative deconditioning over the past couple of days. PHYSICAL EXAMINATION: VITAL SIGNS: Afebrile, pulse 82, blood pressure 105/72, respirations 16, saturation 97% on 1 liter n sunita cannula. On room air, she is 95% saturation. HEENT: Normocephalic, atraumatic. Sclerae are white, conjunctivae pink. Oral and nasal mucosa is m oist without lesions. LUNGS: Reduced air entry. There is a prolonged expiratory phase with wheezing. Dependent crackles are minimal. HEART: Normal rate, regular. ABDOMEN: Soft, nontender, nondistended. Bowel sounds positive. MUSCULOSKELETAL: No cyanosis or clubbing. No pitting in the bilateral lower extremities. NEUROLOGIC: Grossly nonfocal. LABORATORY DATA: Sodium 133, potassium 3.0, chloride 88. Bicarbonate 34. Basic metabolic profile a nd liver function studies are otherwise unremarkable. ASSESSMENT: 1. Acute hypoxic respiratory failure. 2. Chronic obstructive pulmonary disease with acute exacerbation. 3. Hypokalemia. PLAN: We will continue the potassium replacement. I will recheck the level tomorrow morning. From a purely respiratory perspective, the patient is stable for transition out of the hospital. She will need to follow up with Dr. Cano in the outpatient setting in 2-4 weeks with a preclinic chest x-r ay.
[2017-03-05] MEDS ORDERED: predniSONE 20 MG TAB PO SCH (08:00)
[2017-03-05] MEDS: Cefdinir 300 MG CAP PO SCH (08:24)
[2017-03-05] MEDS: Metoprolol Tartrate 50 MG TAB PO SCH (08:26)
[2017-03-05] MEDS: Azithromycin 250 MG TAB PO SCH (08:26)
[2017-03-05] MEDS: Amlodipine 5 MG TAB PO SCH (08:26)
[2017-03-05] MEDS: Losartan/Hydrochlorothiazide 100 mg/25 mg Tablet PO SCH (08:26)
[2017-03-05] MEDS: Aspirin 325 MG TAB PO SCH (08:26)
[2017-03-05] MEDS: Enoxaparin Sodium 40 MG/0.4 ML SYRINGE SC SCH (08:26)
[2017-03-05 09:27] VITALS: BP 97/67; TEMP 97.3
[2017-03-05 09:37] LABS: #Eosinphils 0.1 thou/uL (0.0-0.7); #Neutrophils 3.8 thou/uL (1.40-6.50); %Basophils 0.3 % (0.0-1.0); %Eosinophils 0.8 % (0.0-10.0); %Lymphocytes 29.2 % (21.0-51.0); %Monocytes 14.8 % (0.0-10.0); %Neutrophils 54.9 % (42.0-75.0); Hemoglobin 14.5 g/dL (12.0-16.0); Mean Corpuscular HGB CONC 32.8 g/dL (32.0-36.0); Mean Corpuscular Hemoglobin 31.7 pg (27.0-31.0); Mean Corpuscular Volume 96.6 fl (81.0-99.0); Mean Platelet Volume 7.3 fL (7.4-10.4); Platelet Count 414 thou/uL (130-400); RBC Distribution Width 13.6 % (11.5-14.5); Red Blood Cell (RBC) Count 4.59 mill/uL (4.20-5.40); White Blood Cell (WBC) Count 6.9 thou/uL (4.8-10.8)
[2017-03-05 09:52] LABS: AST (SGOT) 16 U/L (5-34); Anion Gap 15 mmol/L (10-20); Bilirubin, Total 0.7 mg/dL (0.2-1.2); Calc. Creatinine Clearance 69 mL/min (70-130); Calcium 9.6 mg/dL (7.8-10.44); Carbon Dioxide 27 mmol/L (23-31); Chloride 95 mmol/L (98-107); Estimated GFR-MDRD 79; Potassium 3.5 mmol/L (3.5-5.1); Protein, Total 6.6 g/dL (6.0-8.3); Sodium 133 mmol/L (136-145)
[2017-03-05 10:03] LABS: ALT (SGPT) 22 U/L (8-55); Alkaline Phosphatase 42 U/L (40-150); BUN (Urea Nitrogen) 21 mg/dL (9.8-20.1); Globulin 2.5 g/dL (2.4-3.5); Glucose 173 mg/dL (80-115)
--- NOTE | 2017-03-05 12:54 | PDOC.PN ---
- Subjective Encounter Start Date: 03/05/17 Encounter Start Time: 08:40 Subjective: breathing well, is amb in hallway - Objective Resuscitation Status: Resuscitation Status FULL:Full Resuscitation MAR Reviewed: Yes Vital Signs & Weight: Vital Signs (12 hours) Temp Pulse Resp BP BP Pulse Ox 03/05/17 09:27 97.3 F L 91 12 97/67 92 L 03/05/17 08:26 81 03/05/17 08:00 97.3 F L 91 12 03/05/17 06:39 81 16 96 03/05/17 04:48 97.2 F L 82 16 117/84 94 L 03/05/17 04:35 95 Weight Weight 126 lb 1.6 oz I&O: 03/04/17 03/05/17 03/06/17 06:59 06:59 06:59 Intake Total 350 500 Balance 350 500 Result Diagrams: 03/05/17 09:09 03/05/17 09:09 Phys Exam - Physical Examination HEENT: PERRLA, moist MMs Neck: no JVD, supple Respiratory: no wheezing, no rales Cardiovascular: RRR, no significant murmur Gastrointestinal: soft, non-tender, positive bowel sounds Musculoskeletal: no edema, pulses present Neurological: non-focal, moves all 4 limbs Psychiatric: A&O x 3 Dx/Plan (1) COPD with exacerbation Code(s): J44.1 - CHRONIC OBSTRUCTIVE PULMONARY DISEASE W (ACUTE) EXACERBATION Status: Acute (2) Acute respiratory failure with hypoxia and hypercapnia Code(s): J96.01 - ACUTE RESPIRATORY FAILURE WITH HYPOXIA; J96.02 - ACUTE RESPIRATORY FAILURE WITH HYPERCAPNIA Status: Resolved (3) Demand ischemia of myocardium Code(s): I24.8 - OTHER FORMS OF ACUTE ISCHEMIC HEART DISEASE Status: Resolved (4) Tobacco abuse Code(s): Z72.0 - TOBACCO USE Status: Chronic (5) Dyslipidemia Code(s): E78.5 - HYPERLIPIDEMIA, UNSPECIFIED Status: Chronic - Plan steroid taper -: oral zithro and omnicef -: nebs -: counselled reg smoking cessation -: at bedside, dc pt home * .
--- NOTE | 2017-03-06 13:48 | DIS ---
DATE OF ADMISSION: 02/25/2017 DATE OF DISCHARGE: 03/05/2017 DISCHARGE DISPOSITION: Home. PRIMARY DISCHARGE DIAGNOSES: Chronic obstructive pulmonary disease with exacerbation, acute respirat ory failure with hypoxia and hypercapnia resolved, demand ischemia, tobacco abuse, dyslipidemia. PROCEDURES DONE DURING HOSPITALIZATION: Echo with 2D Doppler showed EF of 65%-70%. There was diasto lic dysfunction. Blood cultures x2 no growth. Discharge hemoglobin and hematocrit 14 and 44, platel et count 414. White count 6.9. Blood gas done on the day of admission showed pH of 7.29, PCO2 61, p O2 of 98. Discharge BUN and creatinine are 21 and 0.7. On discharge, albumin is 4.0. Had troponin which is indeterminate and peaking up to 0.48, CK-MB 13. CK level was 904, total cholesterol 127, tr iglycerides 67, LDL 64, HDL 50. INPATIENT CONSULTS: Dr. Cano for Pulmonology. Dr. Farmer for Cardiology. DISCHARGE PLAN: Patient to follow up with Dr. Cano as advised and primary care physician in [facility]. DISCHARGE MEDICATIONS: Prednisone taper over course of 16 days starting at 10 mg twice daily, Zocor 40 mg p.o. at bedtime, Lopressor 50 mg twice daily, losartan with hydrochlorothiazide 100/25 mg daily , DuoNebs q.6 hourly, Omnicef 600 mg daily for another 4 days, Zithromax 250 mg daily for another 4 d ays, aspirin 81 mg daily, Norvasc 5 mg daily. ALLERGIES: LEVAQUIN. BRIEF COURSE DURING HOSPITALIZATION: The patient initially got admitted on with complaints of s hortness of breath and wheezing. Her saturations were 80% on arrival. She also had indeterminate tr oponin. She was placed on BiPAP and admitted to [facility]. She had consultation with Dr. Cano for Pul monology and Dr. Farmer for Cardiology. She has had slow and steady recovery in view of her severe COPD flareup. She was closely monitored by Dr. Farmer for Cardiology and had optimization of her cardiac meds with close monitoring of her wheezing. Prior to discharge, she is ambulating and eating . She is on 92%-94% on room air at the time of discharge. Patient needs to follow up with Dr. Sarai lanier in 2-4 weeks and primary care physician in 1 week. She has been strongly counseled against smokin g in the future in view of her severe COPD flareup which took a long while to get for her to recover. Please see a face to face documentation on [facility] for the day of discharge.
== END 2017-03-05 11:27 | disposition home or self-care (01) | DRG 193 ==
LOC: ERS 11:00 → IMCU/EMU 11:33 → SURG A 03-04 11:47
PROVIDERS: ADMIT Internal Medicine; ATTEND Internal Medicine
PROC: 5A09357 Assistance with Respiratory Ventilation, Less than 24 Consecutive Hours, Continuous Positive Airway Pressure (ICD-10-PCS; principal; 2017-02-26)
DX: J18.9 Pneumonia, unspecified organism (principal); J96.02 Acute respiratory failure with hypercapnia; J96.21 Acute and chronic respiratory failure with hypoxia; E87.3 Alkalosis; I24.8 Other forms of acute ischemic heart disease; J44.0 Chronic obstructive pulmonary disease with (acute) lower respiratory infection; J44.1 Chronic obstructive pulmonary disease with (acute) exacerbation; E87.1 Hypo-osmolality and hyponatremia; F17.210 Nicotine dependence, cigarettes, uncomplicated; I10 Essential (primary) hypertension; E78.5 Hyperlipidemia, unspecified; Z88.1 Allergy status to other antibiotic agents; E87.6 Hypokalemia; R41.0 Disorientation, unspecified; I73.9 Peripheral vascular disease, unspecified; I08.1 Rheumatic disorders of both mitral and tricuspid valves
CPT/HCPCS: 36415; 71010; 80048; 80053; 80061; 82805; 85025; 93005; 93306; 94640; 94660; 94760; 96365; 96372; 99406; A4216; J0456; J0696; J1650; J2920; J3475; J7050; J7506; J7620